=== PATIENT | male | born 1945 | race African-American/Black ===

== ENCOUNTER 2017-01-07 19:14 | Emergency (ER) | payer OTHER ==
[2017-01-07 19:49] VITALS: BMI 24.0
[2017-01-07 20:51] LABS: BASOPHIL 0.7 % (0-2.0); EOSINOPHIL 0.5 % (0-4.5); MCH 30.9 pg (25.7-33.7); MCHC 33.6 g/dl (32.0-35.9); MEAN CELL VOLUME 92.2 fl (80-96); MEAN PLT VOLUME 7.5 fl (7.5-11.1); NEUTROPHILS 76.7 % (42.8-82.8); PLATELET COUNT 308 K/MM3 (134-434); RDW 13.7 % (11.9-15.9); WHITE BLOOD COUNT 17.1 K/mm3 (4.0-10.0)
[2017-01-07 21:15] LABS: ALBUMIN 2.9 g/dl (3.4-5.0); AMYLASE 47 U/L (25-115); ANION GAP 14 (8-16); BILIRUBIN,TOTAL 0.4 mg/dL (0.2-1.0); CALCIUM 8.6 mg/dL (8.5-10.1); CO2 26 mmol/L (21-32); CREATININE 0.8 mg/dL (0.7-1.3); GLUCOSE,RANDOM 99 mg/dL (74-106); SGOT/AST 29 U/L (15-37); SGPT/ALT 44 U/L (12-78); TOT PROT 6.9 g/dl (6.4-8.2)
[2017-01-07 21:18] LABS: ALK PHOS 88 U/L (45-117); TROPONIN I < 0.02 ng/ml (0.00-0.05)
--- NOTE | 2017-01-07 21:18 | PDOC ---
History of Present Illness - General Chief Complaint: Cold Symptoms Stated Complaint: COUGH/ABD PAIN Time Seen by Provider: 01/07/17 20:04 History Source: Patient Exam Limitations: No Limitations - History of Present Illness Initial Comments: 01/07/17 21:15 71yo Male patient presents to ED c/o cough, cold, sneezing, chest pains, abd pain x 3 weeks. He denies fever, n/v/d, back pain, diff breathing. Patient reports OTC medication use for symptoms management. He denies PmHx, or Medication use. + Smoker, + ETOH (5 cans beer per day), - Drug use. Patient denies any other complaints at this time. Timing/Duration: reports: getting worse Severity: reports: mild Possible Cause: No: no prior episodes, other, allergen exposure, chronic episodes, frequent episodes, illness exposure, irritant gases exposure, occasional episodes, smoke exposure, unknown cause Modifying Factors: worse with: activity, albuterol inhaler, albuterol nebulizer , antibiotics, coughing, lying down, oxygen, rest, other Associated Symptoms: denies: denies symptoms, chest pain/soreness, cough, dizziness, earache, facial pain, fever/chills, headache, lightheadedness, muscle aches, nasal congestion, nasal drainage, shortness of breath, sinus infection, sore throat, wheezing, other Aspirin Received prior to arrival: No: no aspirin today, unknown, 81 mg x 1, 81 mg x 2, 81 mg x 3, 81 mg x 4, 325 mg x 1, provided at home, provided by EMS, provided by ED ASA Contraindications(Core Measure): No: Allergy, Other, Active Blding w/i 24 hrs., Plavix, Receiving Warfarin Beta Yash Contraindications(Core Measure): Yes: Not Prescribed Beta Yash Taken at Home(Core Measure): No Beta Yash Not Indicated at this Time(Core Measure): No Past History - Travel Traveled outside of the country in the last 30 days: No Close contact w/someone who was outside of country & ill: No - Past Medical History Allergies/Adverse Reactions: Allergies Allergy/AdvReac Type Severity Reaction Status Date / Time No Known Allergies Allergy Verified 01/07/17 19:46 Home Medications: Ambulatory Orders Albuterol Sulfate Inhaler - [Ventolin HFA Inhaler -] 1 - 2 inh PO Q4H PRN #1 inhaler 01/07/17 Amoxicillin/Potassium Clav [Augmentin 875-125 Tablet] 1 each PO BID #20 tablet 01/07/17 Prednisone [Deltasone -] 40 mg PO DAILY #10 tablet 01/07/17 - Psycho/Social/Smoking Cessation Hx Suicidal Ideation: No Smoking History: Current every day smoker Number of Cigarettes Smoked Daily: 20 Information on smoking cessation initiated: No Hx Alcohol Use: No Drug/Substance Use Hx: No Respiratory Specific PMHX - Complaint Specific PMHX Angina: No Bronchitis: No Pneumonia: No Pulmonary Embolus: No TB (Tuberculosis): No Review of Systems - Review of Systems Able to Perform ROS?: Yes Is the patient limited Lao proficient: No Constitutional: No: Chills, Fever Respiratory: Yes: Cough. No: Shortness of Breath, Stridor, Wheezing Cardiac (ROS): Yes: Chest Pain. No: Edema, Lightheadedness, Palpitations, Syncope, Chest Tightness ABD/GI: Yes: Other (Abdominal Pain). No: Diarrhea, Nausea, Poor Appetite, Poor Fluid Intake, Rectal Bleeding, Vomiting Musculoskeletal: No: Back Pain, Joint Pain, Muscle Weakness Integumentary: No: Bruising, Erythema, Rash Neurological: No: Headache, Numbness, Paresthesia, Seizure, Weakness All Other Systems: Reviewed and Negative *Physical Exam - Vital Signs Last Vital Signs Temp Pulse Resp BP Pulse Ox 99.7 F H 88 16 154/87 94 L 01/07/17 19:46 01/07/17 19:46 01/07/17 19:46 01/07/17 19:46 01/07/17 19:46 - Physical Exam General Appearance: Yes: Appropriately Dressed. No: Apparent Distress, Mild Distress, Moderate Distress, Severe Distress HEENT: positive: EOMI, ILSA, Normal ENT Inspection, Normal Voice, Symmetrical, TMs Normal, Pharynx Normal. negative: Tonsillar Exudate, Tonsillar Erythema, Rhinorrhea, Sinus Tenderness, TM Bulging, TM Dull, TM Erythema Neck: positive: Trachea midline, Supple. negative: Stridor, Lymphadenopathy (R) , Lymphadenopathy (L) Respiratory/Chest: positive: Lungs Clear, Normal Breath Sounds. negative: Respiratory Distress, Accessory Muscle Use, Labored Respiration, Rapid RR, Rhonchi, Stridor, Wheezing Cardiovascular: positive: Regular Rhythm, Regular Rate. negative: Edema, JVD, Murmur Gastrointestinal/Abdominal: positive: Normal Bowel Sounds, Soft, Distended. negative: Guarding, Rebound, Tenderness Musculoskeletal: positive: Normal Inspection. negative: CVA Tenderness Extremity: positive: Normal Capillary Refill, Normal Inspection, Normal Range of Motion. negative: Pedal Edema, Swelling Integumentary: positive: Normal Color, Dry, Warm Neurologic: positive: oracle bpm developer II-XII NML intact, Fully Oriented, Alert, Normal Mood/ Affect, Normal Response, Motor Strength 5/5 Heart Score/ECG Review - History History: Slightly suspicious - Electrocardiogram EKG: Normal - Age Age: >/= 65 - Risk Factors Risk Factors Heart Score: Yes Smoking History Based on the list above the patient has:: 1-2 risk factors - Troponin Troponin: </= normal limit - Score Heart Score - Total: 3 - ECG Impressions Normal ECG: Yes Non-specific ST Elevation: No Ischemic Changes: No Bradycardia: No Torsades kurt Pointes: No WPW: No Comment:: 01/07/17 22:43 Sinus w/ PVC 90bpm No ST elevation. ED Treatment Course - LABORATORY CBC & Chemistry Diagram: 01/07/17 20:40 01/07/17 20:40 - ADDITIONAL ORDERS Additional order review: 01/07/17 20:40 RBC 4.76 MCV 92.2 MCHC 33.6 RDW 13.7 MPV 7.5 Neutrophils % 76.7 Lymphocytes % 14.7 Monocytes % 7.4 Eosinophils % 0.5 Basophils % 0.7 - RADIOLOGY Radiology Studies Ordered: Category Date Time Status CHEST PA & LAT [RAD] Stat Radiology 01/07/17 20:21 Ordered Progress Note - Progress Note Progress Note: ON RE-EVALUATION, PATIENT UP AMBULATING IN [place]. PATIENT REPORTS FEELING BETTER AND WOULD LIKE TO BE D/C'D TO HOME. PLAN: ESTABLISH CARE WITH PCP ABX, STEROIDS, INHALER. *DC/Admit/Observation/Transfer Diagnosis at time of Disposition: Viral syndrome - Discharge Dispostion Disposition: HOME Condition at time of disposition: Improved Admit: No - Prescriptions Prescriptions: Amoxicillin/Potassium Clav [Augmentin 875-125 Tablet] 1 each PO BID #20 tablet Prednisone [Deltasone -] 40 mg PO DAILY #10 tablet Albuterol Sulfate Inhaler - [Ventolin HFA Inhaler -] 1 - 2 inh PO Q4H PRN #1 inhaler PRN Reason: Trouble Breathing - Referrals Referrals: Sedrick Lopez MD [Staff Physician] - - Patient Instructions Printed Discharge Instructions: DI for Viral Upper Respiratory Infection -- Adult, DI for Viral Syndrome Additional Instructions: FOLLOW UP WITH DR. LOPEZ TO ESTABLISH CARE. CALL TO SCHEDULE APPOINTMENT. TAKE MEDICATIONS PRESCRIBED. RETURN IF SYMPTOMS WORSEN, OR ANY CONCERNS FOR FURTHER EVALUATION. YOU MUST FOLLOW UP WITH DR. LOPEZ WITHOUT FAIL. IT IS IMPORTANT THAT YOU START SEEING A PHYSICIAN. NO WORK X 3 DAYS WITH REST. DRINK LOTS OF WATER. MOTRIN OR TYLENOL FOR PAIN/ FEVER. Print Language: UKRAINIAN - Post Discharge Activity Work/School Note: Back to Work
[2017-01-07] MEDS ORDERED: ALBUTEROL SO4 2.5/IPRATROPIUM 0.5 INH SOL 3 ML VIAL.NEB. NEB ONE ×4 (21:23→23:48)
[2017-01-07] MEDS ORDERED: AMOX TR/POT CLAV 875MG/125MG TABLETS (FP) PO ONE (22:39)
[2017-01-07] MEDS ORDERED: ACETAMINOPHEN 325 MG TABLET (FP) PO ONE (22:44)
[2017-01-07] MEDS ORDERED: AMOX TR/POT CLAV 875MG/125MG TABLETS (FP) ONE (22:53)
[2017-01-07] MEDS ORDERED: ACETAMINOPHEN 325 MG TABLET (FP) ONE (22:53)
[2017-01-07 23:17] LABS: URINE APPEARANCE CLEAR; URINE BILIRUBIN NEGATIVE (NEGATIVE); URINE COLOR YELLOW; URINE GLUCOSE (UA) NEGATIVE (NEGATIVE); URINE KETONE NEGATIVE (NEGATIVE); URINE LEUK ESTERASE NEGATIVE (NEGATIVE); URINE NITRITE NEGATIVE (NEGATIVE); URINE UROBILINOGEN 4.0 E.U/dl E.U./dl (0.2-1.0)
[2017-01-07 23:20] LABS: URINE BLOOD 1+ (NEGATIVE); URINE PROTEIN 1+ (NEGATIVE)
[2017-01-07 23:22] LABS: URINE BACTERIA RARE /hpf (NONE SEEN); URINE HYALINE CAST 1 /lpf; URINE MUCUS RARE; URINE RBC 11 /hpf (0-3); URINE WBC 3 /hpf (3-5)
[2017-01-08 00:28] VITALS: BP 145/79; PULSE 75; TEMP 99.4
--- NOTE | 2017-01-08 17:46 | EKG ---
Test Reason : Blood Pressure : / mmHG Vent. Rate : 092 BPM Atrial Rate : 092 BPM P-R Int : 154 ms QRS Dur : 068 ms QT Int : 370 ms P-R-T Axes : 050 -47 003 degrees QTc Int : 457 ms SINUS RHYTHM WITH FREQUENT PREMATURE VENTRICULAR COMPLEXES LEFT AXIS DEVIATION ANTEROSEPTAL INFARCT , AGE UNDETERMINED ABNORMAL ECG NO PREVIOUS ECGS AVAILABLE Confirmed by ISRAEL GERMAIN MD ([id number]) on 01/08/2017 5:46:09 PM Referred By: Confirmed By:ISRAEL GERMAIN MD
== END 2017-01-08 00:28 | disposition home or self-care (01) ==
LOC: JER 19:14
PROC: 3E0F7GC Introduction of Other Therapeutic Substance into Respiratory Tract, Via Natural or Artificial Opening (ICD-10-PCS; principal; 2017-01-07)
PROC: 3E0F7GC Introduction of Other Therapeutic Substance into Respiratory Tract, Via Natural or Artificial Opening (ICD-10-PCS; 2017-01-07)
DX: J06.9 Acute upper respiratory infection, unspecified (principal); B97.89 Other viral agents as the cause of diseases classified elsewhere; F17.210 Nicotine dependence, cigarettes, uncomplicated
CPT/HCPCS: 36415; 71020-TC; 80053; 81003; 81015; 82150; 82550; 83690; 84484; 85025; 93005; 93010; 94640; 99283-25

== ENCOUNTER 2017-07-16 16:10 | Inpatient (IN) | payer OTHER ==
[2017-07-16 16:21] VITALS: BMI 24.0
--- NOTE | 2017-07-16 16:56 | PDOC ---
History of Present Illness - General History Source: Patient Exam Limitations: No Limitations <Dana Ridley - Last Filed: 07/16/17 22:15> - History of Present Illness Beta Yash Contraindications (Core Measure): Yes: Not Prescribed <Antwon Daniel - Last Filed: 07/17/17 00:27> - General Chief Complaint: Syncope/Near Syncope Stated Complaint: FALL/ INJURY Time Seen by Provider: 07/16/17 16:56 - History of Present Illness Initial Comments: 07/16/17 17:44 Patient is a is a 72 year old male with no past medical history who presents to the ED s/p syncope today at 13:30. Patient states that he at [facility] and was walking to the bathroom as he felt lightheaded and fell flat onto his face. Patient reports LOC. He states that he cut his lip during the fall. He also reports bilateral leg weakness. He reports vomiting yesterday, but denies any today. He also reports hiccups since yesterday that have not resolved since. He denies any new abdominal distension. He denies any fever or chill. He denies any headache or blurry vision. He denies any cp or SOB. His Tetanus is not up to date. ALL: NKA SH : smoker - 1 pack a day, alcohol use - 6 pack every 2 days. PCP - Dr. Conroy (Dana Ridley) Past History <Dana Ridley - Last Filed: 07/16/17 22:15> - Past Medical History Other medical history: none - Psycho/Social/Smoking Cessation Hx Anxiety: No Suicidal Ideation: No Smoking History: Current every day smoker Have you smoked in the past 12 months: Yes Number of Cigarettes Smoked Daily: 20 Information on smoking cessation initiated: Yes 'Breaking Loose' booklet given: 07/16/17 Hx Alcohol Use: No Drug/Substance Use Hx: No Substance Use Type: None <Antwon Daniel - Last Filed: 07/17/17 00:27> - Past Medical History Allergies/Adverse Reactions: Allergies Allergy/AdvReac Type Severity Reaction Status Date / Time No Known Allergies Allergy Verified 07/16/17 16:15 Home Medications: Ambulatory Orders NK [No Known Home Medication] 07/16/17 Cardiac Specific PMH - Complaint Specific PMHX Angina: No Pulmonary Embolus: No <Antwon Daniel - Last Filed: 07/17/17 00:27> Review of Systems - Review of Systems Able to Perform ROS?: Yes <Dana Ridley - Last Filed: 07/16/17 22:15> <FredyAntwon - Last Filed: 07/17/17 00:27> - Review of Systems Comments:: 07/16/17 17:44 CONSTITUTIONAL: No fever, no chills, no fatigue EYES: No visual changes ENT: +lip pain. No ear pain, no sore throat CARDIOVASCULAR: No chest pain, no palpitations RESPIRATORY: No cough, no SOB GI: +hiccups. No abdominal pain, no nausea, no vomiting, no constipation, no diarrhea GENITOURINARY: No dysuria, no frequency, no hematuria MUSKULOSKELETAL: No backpain, no joint pain, no myalgias SKIN: No rash NEURO: +syncope No headache (Dana Ridley) *Physical Exam <Dana Ridley - Last Filed: 07/16/17 22:15> <Antwon Daniel - Last Filed: 07/17/17 00:27> - Vital Signs Last Vital Signs Temp Pulse Resp BP Pulse Ox 98.8 F 94 H 22 178/113 98 07/16/17 22:35 07/16/17 22:35 07/16/17 22:35 07/16/17 22:35 07/16/17 22:35 - Physical Exam Comments: 07/16/17 22:32 patient seen and evaluated by me immediately upon arrival. This physical exam is being recorded post admission. EXAMINATION CONSTITUTIONAL: Awake and alert; well-nourished; in no distress; HEAD: Normocephalic; atraumatic EYES: PERRL; EOM intact; conj-injected; + b/l purulent discharge ENMT: + Superficial abrasions to the bridge of the nose, to the nose and upper and lower lips, with tenderness to the nasal bridge, upper and lower lip; there is a 1 cm laceration to the mucosal surface of the lower lip; there is fracture avulsion of the tooth #8, tooth #9 is loose, (there is overall poor dentition with multiple cavities and missing teeth); there is no mandibular tenderness; there is small amount of cardiac-related blood within the oropharynx; NECK: Supple; non-tender; no cervical lymphadenopathy; no meningismus; CARD: Tachycardic; Normal S1, S2; 2/6 systolic murmurs, no rubs, or gallops RESP: Normal chest excursion with respiration; breath sounds clear and equal bilaterally; no wheezes, rhonchi, or rales ABD: Soft, distended; non-tender; no palpable organomegaly, no palpable hernias EXT: Normal ROM in all four extremities; non-tender to palpation; distal pulses intact SKIN: Warm, dry, no rash NEURO: Cranial nerves II through XII are grossly intact; motor is 5 of 54; there is no pronation drift; gait is deferred at this time. (Antwon Daniel) ED Treatment Course - LABORATORY CBC & Chemistry Diagram: 07/16/17 17:38 07/16/17 17:38 <Dana Ridley - Last Filed: 07/16/17 22:15> - LABORATORY CBC & Chemistry Diagram: 07/16/17 17:38 07/16/17 17:38 <Antwon Daniel - Last Filed: 07/17/17 00:27> - ADDITIONAL ORDERS Additional order review: Laboratory Results 07/16/17 07/16/17 07/16/17 20:43 18:13 17:38 INR PTT (Actin FS) VBG pH 7.43 H POC VBG pCO2 37.3 L POC VBG pO2 34.9 Mixed VBG HCO3 24.4 Sodium Potassium Chloride Carbon Dioxide Anion Gap BUN Creatinine Creat Clearance w eGFR Random Glucose Lactic Acid Calcium Total Bilirubin AST ALT Alkaline Phosphatase Creatine Kinase Creatine Kinase Index CK-MB (CK-2) Troponin I Total Protein Albumin Urine Color Ltyellow Urine Appearance Clear Urine pH 6.0 Ur Specific [place] 1.010 Urine Protein Negative Urine Glucose (UA) Negative Urine Ketones Negative Urine Blood 2+ H Urine Nitrite Negative Urine Bilirubin Negative Urine Urobilinogen Negative Ur Leukocyte Esterase Negative Urine RBC 3 Urine WBC 1 Ur Epithelial Cells Rare Urine Mucus Rare Blood Type B POSITIVE Antibody Screen Negative 07/16/17 07/16/17 07/16/17 17:38 17:38 17:38 INR 1.17 H PTT (Actin FS) 32.6 VBG pH POC VBG pCO2 POC VBG pO2 Mixed VBG HCO3 Sodium 135 L Potassium 3.9 Chloride 97 L Carbon Dioxide 26 Anion Gap 12 BUN 8 Creatinine 1.0 D Creat Clearance w eGFR > 60 Random Glucose 102 Lactic Acid 1.6 Calcium 9.3 Total Bilirubin 1.1 H D AST 55 H D ALT 35 D Alkaline Phosphatase 76 Creatine Kinase 2840 H Creatine Kinase Index 0.1 CK-MB (CK-2) 3.881 H Troponin I 0.13 H D Total Protein 8.0 Albumin 4.2 D Urine Color Urine Appearance Urine pH Ur Specific [place] Urine Protein Urine Glucose (UA) Urine Ketones Urine Blood Urine Nitrite Urine Bilirubin Urine Urobilinogen Ur Leukocyte Esterase Urine RBC Urine WBC Ur Epithelial Cells Urine Mucus Blood Type Antibody Screen 07/16/17 17:38 Group A Strep Rapid Antigen - Preliminary Throat 07/16/17 17:38 RBC 5.47 MCV 93.7 MCHC 33.8 RDW 13.7 MPV 8.3 D Neutrophils % Y Lymphocytes % Y - RADIOLOGY Radiology Studies Ordered: Category Date Time Status CHEST CTA [CT] Stat CT Scan 07/16/17 19:[address] W/O CONTRAST [CT] Stat CT Scan 07/16/17 18:[address] WITHOUT CONTRAST [CT] Stat CT Scan 07/16/17 18:50 Completed CHEST X-RAY PORTABLE* [RAD] Stat Radiology 07/16/17 17:20 Taken - Medications Given in the ED: ED Medications Discontinued Medications Generic Name Dose Route Start Last Admin Trade Name Freq PRN Reason Stop Dose Admin Acetaminophen 650 mg 07/16/17 17:50 07/16/17 17:50 Tylenol - PO 07/16/17 17:51 650 mg NOW ONE Administration Acetaminophen 650 mg 07/16/17 18:06 07/16/17 20:32 Tylenol - PO 07/16/17 18:07 Not Given ONCE ONE Aspirin 324 mg 07/16/17 20:24 07/16/17 20:40 Asa - PO 07/16/17 20:25 324 mg ONCE ONE Administration Diphtheria/Tetanus/Acell Pertussis 0.5 ml 07/16/17 17:23 07/16/17 18:02 Boostrix - IM 07/16/17 17:24 0.5 ml .ONCE ONE Administration Sodium Chloride 500 mls @ 500 mls/hr 07/16/17 19:14 07/16/17 20:40 Normal Saline - IV 07/16/17 20:13 500 mls/hr ASDIR STA Administration Azithromycin 500 mg/ Dextrose 250 mls @ 250 mls/hr 07/16/17 20:56 07/16/17 21: 36 IVPB 07/16/17 21:55 250 mls/hr ONCE ONE Administration Ceftriaxone Sodium 1 gm/ 50 mls @ 100 mls/hr 07/16/17 20:56 07/16/17 21:18 Dextrose IVPB 07/16/17 21:25 100 mls/hr ONCE ONE Administration Sodium Chloride 500 ml 07/16/17 17:20 07/16/17 17:51 Normal Saline - IV 07/16/17 17:21 500 ml ONCE ONE Administration Medical Decision Making <Dana Ridley - Last Filed: 07/16/17 22:15> <Antwon Daniel - Last Filed: 07/17/17 00:27> - Medical Decision Making 07/16/17 21:31 A call was placed to Dr. Conroy at his service. Awaiting on a call back from Dr. Griffith covering physician. 07/16/17 21:45 A second call was placed to Dr. Griffith at her service. Awaiting national sales manager back. 07/16/17 22:15 The case was discussed with Dr. Griffith. A call was placed to Dr. Figueroa at his service. Awaiting a call back. (Dana Ridley) 07/16/17 22:38 Patient 72-year-old male who presents to the ER after an unwitnessed syncopal episode with facial injuries, fever and intermittent singultus. EKG shows no evidence of acute ischemia. Chest x-ray reveals no evidence of infiltrate or effusion. CBC is reveals significant leukocytosis of 23,000. CMP reveals elevated CPK and minimally elevated troponin consistent with non-ST elevation myocardial infarction. Urinalysis reveals no evidence of pyuria. CT of head shows no evidence of acute intracranial pathology. CT face reveals a nasal bone and nasal alar fractures. CT of chest shows no evidence of acute PE, right posterior infiltrate is noted. I suspect a syncopal episode brought on by acute pneumonia. Blood and urine cultures been obtained. We'll administer ceftriaxone and Zithromax. Will consult cardiology. Will admit to the telemetry further evaluation treatment. Dr. Espinoza informed and agrees with the plan of care. 07/16/17 23:23 conj are injected, purulent discharge noted. gent opthalmic administered. 07/17/17 00:27 Patient noted to be hypertensive. We'll administer amlodipine 10 mg by mouth. ( Antwon Daniel) *DC/Admit/Observation/Transfer <Dana Ridley - Last Filed: 07/16/17 22:15> - Discharge Dispostion Admit: Yes <Antwon Daniel - Last Filed: 07/17/17 00:27> Diagnosis at time of Disposition: Pneumonia Qualifiers: Pneumonia type: due to unspecified organism Laterality: right Lung location: lower lobe of lung Qualified Code(s): J18.1 - Lobar pneumonia, unspecified organism Syncope Qualifiers: Syncope type: unspecified Qualified Code(s): R55 - Syncope and collapse Myocardial infarction Qualifiers: Myocardial infarction ST status: non-ST elevation myocardial infarction Qualified Code(s): I21.4 - Non-ST elevation (NSTEMI) myocardial infarction Conjunctivitis Qualifiers: Conjunctivitis type: acute Acute conjunctivitis type: unspecified Laterality: bilateral Qualified Code(s): H10.33 - Unspecified acute conjunctivitis, bilateral - Discharge Dispostion Condition at time of disposition: Fair Decision to Admit order Date/Time: Decision to Admit Order Category Date Time Status Decision to Admit to Hospital Routine Admission 07/16/17 22:31 Active - Referrals - Attestations Scribe Attestion: 07/16/17 17:45 Documentation prepared by DEZ Betancourt, acting as emergency medical tech for Antwon Daniel MD. (Dana Ridley)
[2017-07-16] MEDS ORDERED: SODIUM CHLORIDE 0.9% 1000 ML INFUS.BAG IV ONE (17:20)
[2017-07-16] MEDS ORDERED: DIPHTH,PERTUSS(ACELL),TET 0.5 ML DISP.SYRIN IM ONE (17:23)
[2017-07-16] MEDS ORDERED: LIDOCAINE HCL 2% (20ML MULTI-DOSE VIAL) NR ONE (17:30)
[2017-07-16] MEDS ORDERED: ACETAMINOPHEN 325 MG TABLET (FP) ONE (17:32)
[2017-07-16] MEDS ORDERED: ACETAMINOPHEN 325 MG TABLET (FP) PO ONE ×2 (17:50→18:06)
[2017-07-16 18:02] LABS: MCH 31.7 pg (25.7-33.7); MCHC 33.8 g/dl (32.0-35.9); MEAN CELL VOLUME 93.7 fl (80-96); MEAN PLT VOLUME 8.3 fl (7.5-11.1); PLATELET COUNT 242 K/MM3 (134-434); RDW 13.7 % (11.9-15.9); WHITE BLOOD COUNT 23.3 K/mm3 (4.0-10.0)
[2017-07-16 18:28] LABS: ALBUMIN 4.2 g/dl (3.4-5.0); ANION GAP 12 (8-16); CALCIUM 9.3 mg/dL (8.5-10.1); CO2 26 mmol/L (21-32); GLUCOSE,RANDOM 102 mg/dL (74-106)
[2017-07-16 18:31] LABS: VENOUS BLOOD GAS HCO3 24.4 meq/L (19-25); VENOUS PH 7.43 (7.32-7.42)
[2017-07-16 18:44] LABS: ALK PHOS 76 U/L (45-117); BILIRUBIN,TOTAL 1.1 mg/dL (0.2-1.0); SGOT/AST 55 U/L (15-37); SGPT/ALT 35 U/L (12-78); TROPONIN I 0.13 ng/ml (0.00-0.05)
[2017-07-16 18:46] LABS: INR 1.17 (0.82-1.09); PROTHROMBIN TIME (PATIENT) 12.9 SEC (9.98-11.88)
[2017-07-16 18:49] LABS: ACTIVATED PTT 32.6 SECONDS (26.9-34.4)
[2017-07-16 19:00] LABS: CPK 2840 IU/L (39-308)
[2017-07-16] MEDS ORDERED: SODIUM CHLORIDE 500 ML IV STA (19:14)
[2017-07-16] MEDS ORDERED: ASPIRIN 81 MG CHEWABLE TABLETS PO ONE (20:24)
[2017-07-16] MEDS ORDERED: ASPIRIN 81 MG CHEWABLE TABLETS ONE (20:33)
[2017-07-16] MEDS ORDERED: AZITHROMYCIN IVPB 500 MG in DEXTROSE 5%-WATER - 250 ML IVPB ONE (20:56)
[2017-07-16] MEDS ORDERED: CEFTRIAXONE 1 GM in DEXTROSE 5%-WATER - 50 ML IVPB ONE (20:56)
[2017-07-16 20:57] LABS: URINE APPEARANCE CLEAR; URINE BILIRUBIN NEGATIVE (NEGATIVE); URINE BLOOD 2+ (NEGATIVE); URINE COLOR LTYELLOW; URINE GLUCOSE (UA) NEGATIVE (NEGATIVE); URINE KETONE NEGATIVE (NEGATIVE); URINE LEUK ESTERASE NEGATIVE (NEGATIVE); URINE NITRITE NEGATIVE (NEGATIVE); URINE PROTEIN NEGATIVE (NEGATIVE); URINE UROBILINOGEN NEGATIVE mg/dL (0.2-1.0)
[2017-07-16] MEDS ORDERED: AZITHROMYCIN IVPB 250 ML IVPB ONE (21:10)
[2017-07-16] MEDS ORDERED: CEFTRIAXONE 50 ML ONE (21:10)
[2017-07-16 22:08] LABS: BASOPHIL (MANUAL) 0 % (0-2.0)
[2017-07-16] MEDS ORDERED: ALBUTEROL SO4 2.5/IPRATROPIUM 0.5 INH SOL 3 ML VIAL.NEB. NEB PRN (22:40)
[2017-07-16] MEDS ORDERED: ACETAMINOPHEN 325 MG TABLET (FP) PO PRN (22:42)
[2017-07-16 23:02] LABS: URINE MUCUS RARE; URINE RBC 3 /hpf (0-3); URINE WBC 1 /hpf (3-5)
[2017-07-16] MEDS ORDERED: GENTAMICIN SULFATE 0.3% OPHTHALMIC (EYE DROPS) 5ML BOTTLE ONE (23:03)
[2017-07-17] MEDS ORDERED: amLODIPine BESYLATE 10 MG TABLET (FP) PO ONE (00:27)
[2017-07-17] MEDS ORDERED: amLODIPine BESYLATE 5 MG TABLET (FP) ONE (00:29)
[2017-07-17 03:50] LABS: TROPONIN I 0.19 ng/ml (0.00-0.05)
[2017-07-17 07:59] LABS: BASOPHIL 0.5 % (0-2.0); EOSINOPHIL 0.1 % (0-4.5); MCH 31.6 pg (25.7-33.7); MCHC 33.8 g/dl (32.0-35.9); MEAN CELL VOLUME 93.7 fl (80-96); MEAN PLT VOLUME 8.2 fl (7.5-11.1); NEUTROPHILS 86.3 % (42.8-82.8); PLATELET COUNT 213 K/MM3 (134-434); RDW 13.6 % (11.9-15.9); WHITE BLOOD COUNT 22.3 K/mm3 (4.0-10.0)
[2017-07-17 08:39] LABS: ANION GAP 10 (8-16); CALCIUM 8.5 mg/dL (8.5-10.1); CO2 25 mmol/L (21-32); CREATININE 0.8 mg/dL (0.7-1.3); GLUCOSE,RANDOM 84 mg/dL (74-106); SGOT/AST 98 U/L (15-37); SGPT/ALT 46 U/L (12-78)
[2017-07-17 08:41] LABS: ALK PHOS 67 U/L (45-117); BILIRUBIN,TOTAL 0.8 mg/dL (0.2-1.0); TOT PROT 6.2 g/dl (6.4-8.2)
--- NOTE | 2017-07-17 08:46 | CON.CARD ---
Consult Consult Specialty:: Cardiology Referred by:: Dr. Griffith Reason for Consultation:: Syncope, elevated troponin, nsvt - History of Present Illness Chief Complaint: Syncope, dizziness History of Present Illness: 72 year old man with no prior known pmh admitted with syncope, dizziness, PNA, elevated ck and troponin. Pt was seen and examined today in [facility]. 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 he states that yesterday around lunch time he was walking to the bathroom when he felt dizziness and lost consciousness falling to the ground and hitting his face. He does not know how long he was unconscious but it seems like a short time. this was unwitnessed, when he woke up he saw someone nearby and asked for help. he refused to go to the hospital nearby but instead was driven down to [place] and came to [facility]. He denies any chest pain, sob, or palpitations. no pnd, orthopnea, or LE edema. He does state he felt slight lightheadedness the day before and also abdominal discomfort on the day of the event. Admits to a mild cough but nonproductive. no fever or chills. no prior similar events. - History Source History Provided By: Patient, Medical Record Limitations to Obtaining History: No Limitations - Alcohol/Substance Use Hx Alcohol Use: Yes (beer 8 cans/week) - Smoking History Smoking history: Current every day smoker Have you smoked in the past 12 months: Yes Aproximately how many cigarettes per day: 20 - Social History ADL: Independent History of Recent Travel: No Home Medications - Allergies Allergies/Adverse Reactions: Allergies Allergy/AdvReac Type Severity Reaction Status Date / Time No Known Allergies Allergy Verified 07/16/17 16:15 - Home Medications Home Medications: Ambulatory Orders NK [No Known Home Medication] 07/16/17 Family Disease History - Family Disease History Family History: Denies Review of Systems - Review of Systems Constitutional: denies: No Symptoms, Chills, Diaphoresis, Fever, Lethargy, Loss of Appetite, Malaise, Night Sweats, Unintentional Wgt. Loss, Weakness, Other Eyes: denies: No Symptoms, Blind Spots, Blurred Vision, Double Vision, Eye Pain , Floaters, Photophobia, Recent Change in Vision, Other HENT: denies: No Symptoms, Difficult Swallowing, Ear Discharge, Ear Pain, Epistaxis, Gingival Bleeding, Hearing Loss, Mouth Swelling, Nasal Congestion, Ocular Prosthesis, Throat Pain, Toothache, Ringing in Ears, Other Neck: denies: No Symptoms, Decreased ROM, Lumps, Pain on Movement, Stiffness, Swollen Glands, Tenderness, Other Cardiovascular: denies: No Symptoms, Chest Pain, Edema, Palpitations, Shortness of Breath, Other Respiratory: reports: Cough. denies: No Symptoms, Exercise Intolerance, Hemoptysis, Orthopnea, PND, Snoring, SOB, SOB on Exertion, Wheezing, Other Gastrointestinal: reports: Abdominal Pain, Indigestion. denies: No Symptoms, Bloating, Constipation, Diarrhea, Dysphagia, Melena, Nausea, Rectal Bleeding, Vomiting, Vomiting Blood, Other Genitourinary: denies: No Symptoms, Burning, Discharge, Dysuria, Flank Pain, Frequency, Hematuria, Incontinence, Lesions, Menses, Pain, Testicular Mass, Testicular Pain, Testicular Swelling, Urgency, Vaginal Bleeding, Other Breasts: denies: No Symptoms Reported, See HPI, Breast Implants, Discharge from Nipple, Lumps, Pain, Skin Changes, Other Musculoskeletal: denies: No Symptoms, Back Pain, Crepitus, Decreased ROM, Extremity Pain, Joint Pain, Joint Swelling, Muscle Pain, Muscle Cramps, Muscle Weakness, Other Integumentary: denies: No Symptoms, Blister, Bruising, Change in Color, Eczema, Erythema, Incision, Lesions, Lump, Pallor, Pruritis, Rash, Wound, Other Neurological: reports: Dizziness, Syncope. denies: No Symptoms, Change in LOC, Change in Speech, Confusion, Headache, Incoordination, Numbness, Parasthesia, Pre-Existing Deficit, Seizure, Tremors, Unsteady Gait, Weakness, Other Endocrine: denies: No Symptoms, Excessive Sweating, Flushing, Increased Hunger, Increased Thirst, Intolerance to Cold, Intolerance to Heat, Unexplained Weight Gain, Unexplained Weight Loss, Other Hematology/Lymphatic: denies: No Symptoms, Easily Bruised, Excessive Bleeding, Swollen Glands, Other Psychiatric: denies: No Symptoms, Altered Sleep Pattern, Anxiety, Depression, Hallucinations, Panic, Paranoia, Suicidal, Other Vital Signs: Vital Signs Temperature 98.8 F 07/17/17 05:51 Pulse Rate 84 07/17/17 05:51 Respiratory Rate 18 07/17/17 05:51 Blood Pressure 147/82 07/17/17 05:51 O2 Sat by Pulse Oximetry (%) 96 07/17/17 01:05 Constitutional: Yes: Well Nourished, No Distress, Calm, Other (poor dentitian) Eyes: Yes: Conjunctiva Clear, EOM Intact, PERRL HENT: Yes: Other (facial trauma). No: Atraumatic, Normocephalic Neck: Yes: Supple, Trachea Midline Respiratory: Yes: Regular, CTA Bilaterally, Rhonchi. No: Rales, SOB, Wheezes Gastrointestinal: Yes: Normal Bowel Sounds, Soft. No: Distention, Tenderness Renal/: Yes: WNL Cardiovascular: Yes: Regular Rate and Rhythm. No: Bradycardia, Tachycardia, Pulse Irregular, Gallop, Rub, Varicosities JVD: No Carotid Bruit: No PMI: Non-Displaced Heart Sounds: Yes: S1, S2. No: Split S2, S3, S4, Clicks, Gallop, Rub, Bruit Murmur: No: Systolic Murmur, Diastolic Murmur Musculoskeletal: Yes: WNL Extremities: Yes: WNL Edema: No Peripheral Pulses WNL: Yes Peripheral Pulses: 2+ Left Doralis Pedis, 2+ Right Dorsalis Pedis Integumentary: Yes: WNL Neurological: Yes: Alert, Oriented, Cran Nerves II-XII Intact Psychiatric: Yes: Alert, Oriented - Other Data Labs, Other Data: CBC, BMP 07/17/17 06:00 INR, PTT INR 1.17 (0.82-1.09) H 07/16/17 17:38 Troponin, BNP 07/17/17 03:00 Troponin I 0.19 H D Troponin, BNP 07/17/17 03:00 Troponin I 0.19 H D ekg-sinus tachycardia 104bpm, poor R wave progression, left axis deviation, septal infarct Echo: Pending Imaging - Results Chest X-ray: Report Reviewed, Image Reviewed Cat Scan: Report Reviewed EKG: Report Reviewed, Image Reviewed Other: Report Reviewed, Image Reviewed (tele-nsr, 5 beats NSVT vs PSVT with aberrancy, frequent PVCs) Assessment/Plan 72 year old man with no prior known pmh admitted with syncope, dizziness, abdominal discomfort, PNA, elevated ck and troponin. Syncope-uncertain etiology -likely related to PNA however need to evaluate for cardiac source -5 beats of NSVT vs PSVT with aberrancy on telemetry with frequent PVCs -cont tele monitoring -carotid doppler showed no stenosis -CT head showed no acute event -f/up echo to evaluate for structural heart disease -check orthostatic BP -tx of PNA -consider Neuro evaluation if needed Elevated cardiac enzymes -troponin slightly above upper limit of normal but did not trend significantly up and is associated with an elevated CK level out of proportion to troponin thus unlikely at type I CT, trop trended back down to 0.13 on last check -start ASA 325mg x 1 then 81mg daily -start metoprolol 25mg po bid -start Lipitor -hold off on full AC as trop did not sig trend up -5 beats NSVT on tele with frequent pvcs -no reported chest pain or sob -f/up echo -would recc an ischemic evaluation prior to discharge likely with a nuclear stress test, will order nuclear stress test for tomorrow and re-evaluate in am if clinically ready for stress test Arrhythmia-frequent PVCs, 5 beats NSVT vs PSVT with aberrancy -start metoprolol as above -f/up echo -ischemic evaluation as above -cont tele monitoring for now
--- NOTE | 2017-07-17 09:09 | CONSULT ---
Consultation: REQUESTING PROVIDER: CONSULT REQUEST: We have been asked to medically evaluate this patient for ( specify). HISTORY OF PRESENT ILLNESS: Patient is a 72 y/o M with no significant past medical history arrived at the ED department s/p syncope that occurred while walking to the bathroom at [facility]. He experienced lightheadedness and 1 episode of vomiting before the fall, fell flat on his face and says he lost consciousness for about a minute. 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 He denies diarrhea, fever, urinary symptoms, sob, headache weight loss and recent travel. 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 consistently uses condoms REVIEW OF SYSTEMS: CONSTITUTIONAL: Absent: fever, chills, diaphoresis, generalized weakness, malaise, loss of appetite, weight change HEENT: Absent: rhinorrhea, nasal congestion, throat pain, throat swelling, difficulty swallowing, mouth swelling, ear pain, eye pain, visual changes CARDIOVASCULAR: Absent: chest pain, syncope, palpitations, irregular heart rate, lightheadedness , peripheral edema RESPIRATORY: Absent: cough, shortness of breath, dyspnea with exertion, orthopnea, wheezing, stridor, hemoptysis GASTROINTESTINAL: abdominal pain Absent: abdominal distension, nausea, vomiting, diarrhea, constipation, melena, hematochezia GENITOURINARY: Absent: dysuria, frequency, urgency, hesitancy, hematuria, flank pain, genital pain MUSCULOSKELETAL: Absent: myalgia, arthralgia, joint swelling, back pain, neck pain SKIN: Absent: rash, itching, pallor HEMATOLOGIC/IMMUNOLOGIC: Absent: easy bleeding, easy bruising, lymphadenopathy, frequent infections ENDOCRINE: Absent: unexplained weight gain, unexplained weight loss, heat intolerance, cold intolerance NEUROLOGIC: Absent: headache, focal weakness or paresthesias, dizziness, unsteady gait, seizure, mental status changes, bladder or bowel incontinence PSYCHIATRIC: Absent: anxiety, depression, suicidal or homicidal ideation, hallucinations. PHYSICAL EXAMINATION Vital Signs - 24 hr 07/17/17 07/17/17 07/17/17 00:20 01:02 01:05 Temperature 99.3 F 99.3 F Pulse Rate 92 H 90 Pulse Rate [ 87 Right Radial] Respiratory 18 20 20 Rate Blood Pressure 166/92 166/92 Blood Pressure 154/95 [Right Arm] O2 Sat by Pulse 96 Oximetry (%) 07/17/17 05:51 Temperature 98.8 F Pulse Rate 84 Pulse Rate [ Right Radial] Respiratory 18 Rate Blood Pressure 147/82 Blood Pressure [Right Arm] O2 Sat by Pulse Oximetry (%) GENERAL: Awake, alert, and fully oriented, in no acute distress. HEAD: Normal with no signs of trauma. EYES: Pupils equal, round and reactive to light, extraocular movements intact, sclera anicteric, conjunctiva clear. No lid lag. EARS, NOSE, THROAT: Ears normal, superficial abrasions to the nose and lips, laceration to mucosal surface of lower lips. Moist mucous membranes. NECK: Normal range of motion, supple without lymphadenopathy, JVD, or masses. LUNGS: Breath sounds equal, clear to auscultation bilaterally. No wheezes, and no crackles. No accessory muscle use. HEART: Regular rate and rhythm, normal S1 and S2 without murmur, rub or gallop. ABDOMEN: nontender, distended, normoactive bowel sounds, no guarding, no rebound , no masses. No hepatomegaly or splenomegaly. MUSCULOSKELETAL: Normal range of motion at all joints. No bony deformities or tenderness. No CVA tenderness. UPPER EXTREMITIES: left hand tenderness, 2+ pulses, warm, well-perfused. No cyanosis. No clubbing. Cap refill <2 seconds. No peripheral edema. LOWER EXTREMITIES: 2+ pulses, warm, well-perfused. No calf tenderness. No peripheral edema. PSYCHIATRIC: Cooperative. Good eye contact. Appropriate mood and affect. SKIN: Warm, dry, normal turgor, no rashes or lesions noted. Laboratory Results - last 24 hr 07/17/17 07/17/17 07/17/17 03:00 06:00 06:00 WBC 22.3 H RBC 4.74 Hgb 15.0 D Hct 44.4 MCV 93.7 MCH 31.6 MCHC 33.8 RDW 13.6 Plt Count 213 MPV 8.2 Neutrophils % 86.3 H Lymphocytes % 7.7 L D Monocytes % 5.4 Eosinophils % 0.1 Basophils % 0.5 Sodium 140 Potassium 3.5 Chloride 105 Carbon Dioxide 25 Anion Gap 10 BUN 7 Creatinine 0.8 Creat Clearance w eGFR > 60 Random Glucose 84 Calcium 8.5 Total Bilirubin 0.8 D AST 98 H D ALT 46 D Alkaline Phosphatase 67 Creatine Kinase 5455 H Creatine Kinase Index 0.0 CK-MB (CK-2) 3.991 H Troponin I 0.19 H D Total Protein 6.2 L D Albumin 3.0 L D Active Medications Generic Name Dose Route Start Last Admin Trade Name Freq PRN Reason Stop Dose Admin Acetaminophen 650 mg 07/16/17 22:42 Tylenol - PO Q6H PRN FEVER Albuterol/Ipratropium 1 amp 07/16/17 22:40 Duoneb - NEB Q6H PRN Dyspnea Aspirin 325 mg 07/17/17 08:58 Asa - PO 07/17/17 08:59 ONCE ONE Aspirin 81 mg 07/18/17 10:00 Asa - PO DAILY YVES Atorvastatin Calcium 40 mg 07/17/17 22:00 Lipitor - PO HS YVES Azithromycin 250 mls @ 250 mls/hr 07/17/17 10:00 Zithromax 500mg Ivpb (Pre-Docked) IVPB DAILY YVES Ceftriaxone Sodium 50 mls @ 100 mls/hr 07/17/17 10:00 Rocephin 1gm Ivpb (Pre-Docked) IVPB DAILY YVES Metoprolol Tartrate 25 mg 07/17/17 10:00 Lopressor - PO BID YVES ASSESSMENT/PLAN: Patient is a 72 y/o M with no significant past medical history arrived at the ED department admitted for syncope and currently being treated for pneumonia. ASSESSMENT AND PLAN: 1) RLL Pneumonia (CAP) -continue rocephin 1g IV qd -zithromax 500mg IV qd - F/up Bcx, Ucx, throat culture, urine antigen for pneumonia negative, HIV screening (pt agreeable) 2) Syncope -cardiology on board believes syncope secondary to the pneumonia but is investigating other causes at this time. -carotid doppler is negative -Ct head negative for acute pathology - F/up echo 3)Transaminitis - Patient with abdominal distention, history of alcoholism - will investigate with abdominal U/S, HIV testing, and Hep C panel Dispo: We will continue to follow the patient. Thank you for this consultative opportunity. Visit type - Emergency Visit Emergency Visit: Yes ED Registration Date: 07/16/17 Care time: The patient presented to the Emergency Department on the above date and was hospitalized for further evaluation of their emergent condition. - New Patient This patient is new to me today: Yes Date on this admission: 07/18/17 - Critical Care Critical Care patient: No
[2017-07-17] MEDS ORDERED: ASPIRIN 325 MG TABLET PO ONE (09:45)
--- NOTE | 2017-07-17 09:49 | PN ---
Teaching Attending Note Name of Resident: Javier Brar ATTENDING PHYSICIAN STATEMENT I saw and evaluated the patient. I reviewed the resident's note and discussed the case with the resident. I agree with the resident's findings and plan as documented. SUBJECTIVE: OBJECTIVE: ASSESSMENT AND PLAN: syncope LLL pneumonia leukocytosis continue treatment of CAP f/u cultures HIV screen in am (pt agreeable) abd sonogram- abnl lfts, +etoh, check hep c rhabdomyolysis positive troponin continue rocephin/zithromax f/u cultures legionella urinary antigen sono abd hiv hep c Problem List - Problems (1) Syncope Code(s): R55 - SYNCOPE AND COLLAPSE Qualifiers: Syncope type: unspecified Qualified Code(s): R55 - Syncope and collapse (2) Pneumonia Code(s): J18.9 - PNEUMONIA, UNSPECIFIED ORGANISM Qualifiers: Pneumonia type: due to unspecified organism Laterality: right Lung location: lower lobe of lung Qualified Code(s): J18.1 - Lobar pneumonia, unspecified organism (3) Rhabdomyolysis Code(s): M62.82 - RHABDOMYOLYSIS (4) Abnormal LFTs Code(s): R79.89 - OTHER SPECIFIED ABNORMAL FINDINGS OF BLOOD CHEMISTRY (5) Troponin I above reference range Code(s): R74.8 - ABNORMAL LEVELS OF OTHER SERUM ENZYMES
[2017-07-17] MEDS: CEFTRIAXONE 50 ML IVPB SCH (10:15)
[2017-07-17] MEDS: AZITHROMYCIN IVPB 250 ML IVPB SCH (10:18)
[2017-07-17] MEDS: METOPROLOL TARTRATE 25 MG TABLET (FP) PO SCH ×2 (10:18→22:03)
[2017-07-17 11:00] LABS: TROPONIN I 0.13 ng/ml (0.00-0.05)
[2017-07-17] MEDS: SODIUM CHLORIDE 0.45% 1,000 ML IV SCH (11:00)
--- NOTE | 2017-07-17 12:50 | HP ---
Admitting History and Physical - Primary Care Physician PCP: Sedrick Conroy - Admission Chief Complaint: syncope History of Present Illness: ER HISTORY - History of Present Illness Initial Comments: 07/16/17 17:44 Patient is a is a 72 year old male with no past medical history who presents to the ED s/p syncope today at 13:30. Patient states that he at [facility] and was walking to the bathroom as he felt lightheaded and fell flat onto his face. Patient reports LOC. He states that he cut his lip during the fall. He also reports bilateral leg weakness. He reports vomiting yesterday, but denies any today. He also reports hiccups since yesterday that have not resolved since. He denies any new abdominal distension. He denies any fever or chill. He denies any headache or blurry vision. He denies any cp or SOB. His Tetanus is not up to date. ALL: NKA SH : smoker - 1 pack a day, alcohol use - 6 pack every 2 days. PCP - Dr. Conroy Pt seen by me in Telemetry Has lip pain no body aches or pain Pt is a small business consultant. He fainted after driving to [place] , just felt lightheaded and fell.Unknown how long he passed out as it was unwitnessed. Did not go to ER nearby and was brought here prior to that he has been having occasion coughing with moist sputum- chronic smoker No fever or SOB No Chest pain Fell on his face and lip was sutured in ER History Source: Patient Limitations to Obtaining History: No Limitations - Past Medical History Pulmonary: Yes: COPD - Smoking History Smoking history: Current every day smoker Have you smoked in the past 12 months: Yes Aproximately how many cigarettes per day: 20 - Alcohol/Substance Use Hx Alcohol Use: Yes (beer 8 cans/week) - Social History ADL: Independent History of Recent Travel: No Home Medications - Allergies Allergies/Adverse Reactions: Allergies Allergy/AdvReac Type Severity Reaction Status Date / Time No Known Allergies Allergy Verified 07/16/17 16:15 - Home Medications Home Medications: Ambulatory Orders NK [No Known Home Medication] 07/16/17 Review of Systems - Review of Systems Constitutional: reports: Weakness. denies: Chills, Fever, Loss of Appetite Cardiovascular: denies: Chest Pain, Palpitations, Shortness of Breath Respiratory: reports: Cough. denies: SOB, Wheezing Physical Examination Vital Signs: Vital Signs Temperature 98.8 F 07/17/17 05:51 Pulse Rate 84 07/17/17 05:51 Respiratory Rate 18 07/17/17 05:51 Blood Pressure 147/82 07/17/17 05:51 O2 Sat by Pulse Oximetry (%) 96 07/17/17 01:05 Constitutional: Yes: No Distress, Calm HENT: Yes: Other (lips swollen) Cardiovascular: Yes: Regular Rate and Rhythm Respiratory: Yes: Diminished, Rales (right lung) Gastrointestinal: Yes: Normal Bowel Sounds, Soft. No: Distention, Tenderness Edema: No Psychiatric: Yes: Alert, Oriented Labs: CBC, BMP 07/17/17 06:00 07/17/17 06:00 Imaging - Results Chest X-ray: Image Reviewed Cat Scan: Report Reviewed EKG: Image Reviewed Problem List - Problems (1) Pneumonia Code(s): J18.9 - PNEUMONIA, UNSPECIFIED ORGANISM Qualifiers: Pneumonia type: due to unspecified organism Laterality: right Lung location: lower lobe of lung Qualified Code(s): J18.1 - Lobar pneumonia, unspecified organism (2) Rhabdomyolysis Code(s): M62.82 - RHABDOMYOLYSIS Qualifiers: Rhabdomyolysis type: traumatic (3) Syncope Code(s): R55 - SYNCOPE AND COLLAPSE Qualifiers: Syncope type: unspecified Qualified Code(s): R55 - Syncope and collapse (4) Troponin I above reference range Code(s): R74.8 - ABNORMAL LEVELS OF OTHER SERUM ENZYMES Assessment/Plan PLAN Received antibiotics in ER cultures pending Urine antigens negative ID and Cardiology eval IV fluids trend cardiac enzymes and CPK check Echo Carotid doppler-- no stenosis may need to repeat CT chest in a few days CT chest -- Negative for PE, right lung infiltrate CT facial bones-- nasal fracture CT head- negative IV antibiotics Sputum cultures nebs as needed DVT prophylaxis-- Heparin sc Time spent assessment, plan, documentation and talking with consultants-- 40 min
[2017-07-17] MEDS: NICOTINE 14 MG/24 HOURS TOPICAL PATCH TD SCH (15:24)
--- NOTE | 2017-07-17 16:42 | EKG ---
Test Reason : Blood Pressure : / mmHG Vent. Rate : 104 BPM Atrial Rate : 104 BPM P-R Int : 166 ms QRS Dur : 086 ms QT Int : 346 ms P-R-T Axes : 057 -54 048 degrees QTc Int : 454 ms SINUS TACHYCARDIA POSSIBLE LEFT ATRIAL ENLARGEMENT LEFT AXIS DEVIATION SEPTAL INFARCT (CITED ON OR BEFORE 07-JAN-2017) ABNORMAL ECG WHEN COMPARED WITH ECG OF 07-JAN-2017 22:30, PREMATURE VENTRICULAR COMPLEXES ARE NO LONGER PRESENT NONSPECIFIC T WAVE ABNORMALITY NO LONGER EVIDENT IN LATERAL LEADS Confirmed by LUCY OLIVARES MD ([id number]) on 07/17/2017 4:41:53 PM Referred By: Confirmed By:LUCY OLIVARES MD
[2017-07-17] MEDS: ATORVASTATIN CA 40 MG TABLET (FP) PO SCH (22:04)
[2017-07-17] MEDS: HEPARIN NA (PORCINE) 5,000 UNITS/ML 1ML VIAL SQ SCH (22:04)
[2017-07-18 08:13] LABS: ALBUMIN 2.8 g/dl (3.4-5.0); ALK PHOS 66 U/L (45-117); ANION GAP 8 (8-16); BILIRUBIN,TOTAL 0.6 mg/dL (0.2-1.0); CALCIUM 8.3 mg/dL (8.5-10.1); CO2 25 mmol/L (21-32); CREATININE 0.7 mg/dL (0.7-1.3); GLUCOSE,RANDOM 83 mg/dL (74-106); SGOT/AST 154 U/L (15-37); SGPT/ALT 63 U/L (12-78); TOT PROT 5.9 g/dl (6.4-8.2)
--- NOTE | 2017-07-18 08:13 | PN ---
Physical Exam: SUBJECTIVE: Patient seen and examined. No overnight events and no new complaints. He still has pain in his left hand and wrist that has not improved. Patient says cough is much better than before. He denies chest and abdominal pain, urinary symptoms, fever, SOB and dizziness. OBJECTIVE: Vital Signs Period Temp Pulse Resp BP Sys/Elias Pulse Ox Last 24 Hr 98.0 F-99.2 F 68-77 18-18 137-145/72-82 96-97 GENERAL: The patient is awake, alert, and fully oriented, in no acute distress. HEAD: Normal with no signs of trauma. EYES: PERRL, extraocular movements intact, sclera anicteric, conjunctiva clear. No ptosis. ENT: superficial abrasions to the nose and lips. Laceration to the mucosal surface of lower lip. NECK: supple. LUNGS: Breath sounds equal, clear to auscultation bilaterally, no wheezes, no crackles, no accessory muscle use. HEART: Regular rate and rhythm, S1, S2 without murmur, rub or gallop. ABDOMEN: Soft, nontender, distended, normoactive bowel sounds, no guarding, no rebound, no hepatosplenomegaly, no masses. EXTREMITIES: pain and tenderness on left hand and wrist PSYCH: Normal mood, normal affect. SKIN: Warm, dry, normal turgor, no rashes Laboratory Results - last 24 hr 07/17/17 07/17/17 07/17/17 06:00 06:00 09:55 WBC 22.3 H RBC 4.74 Hgb 15.0 D Hct 44.4 MCV 93.7 MCH 31.6 MCHC 33.8 RDW 13.6 Plt Count 213 MPV 8.2 Neutrophils % 86.3 H Lymphocytes % 7.7 L D Monocytes % 5.4 Eosinophils % 0.1 Basophils % 0.5 Sodium 140 Potassium 3.5 Chloride 105 Carbon Dioxide 25 Anion Gap 10 BUN 7 Creatinine 0.8 Creat Clearance w eGFR > 60 Random Glucose 84 Calcium 8.5 Total Bilirubin 0.8 D AST 98 H D ALT 46 D Alkaline Phosphatase 67 Creatine Kinase 5047 H Creatine Kinase Index 0.0 CK-MB (CK-2) 2.359 Troponin I 0.13 H D Total Protein 6.2 L D Albumin 3.0 L D Active Medications Generic Name Dose Route Start Last Admin Trade Name Freq PRN Reason Stop Dose Admin Acetaminophen 650 mg 07/16/17 22:42 Tylenol - PO Q6H PRN FEVER Albuterol/Ipratropium 1 amp 07/16/17 22:40 Duoneb - NEB Q6H PRN Dyspnea Aspirin 81 mg 07/18/17 10:00 Asa - PO DAILY YVES Atorvastatin Calcium 40 mg 07/17/17 22:00 07/17/17 22:04 Lipitor - PO 40 mg HS YVES Administration Heparin Sodium (Porcine) 5,000 unit 07/17/17 22:00 07/17/17 22:04 Heparin - SQ 5,000 unit BID YVES Administration Azithromycin 250 mls @ 250 mls/hr 07/17/17 10:00 07/17/17 10:18 Zithromax 500mg Ivpb (Pre-Docked) IVPB 250 mls/hr DAILY YVES Administration Ceftriaxone Sodium 50 mls @ 100 mls/hr 07/17/17 10:00 07/17/17 10:15 Rocephin 1gm Ivpb (Pre-Docked) IVPB 100 mls/hr DAILY YVES Administration Sodium Chloride 1,000 mls @ 83 mls/hr 07/17/17 10:15 07/17/17 11:00 1/2 Normal Saline IV 83 mls/hr ASDIR YVES Administration Metoprolol Tartrate 25 mg 07/17/17 10:00 07/17/17 22:03 Lopressor - PO 25 mg BID YVES Administration Nicotine 14 mg 07/17/17 14:15 07/17/17 15:24 Nicoderm Patch - TD 14 mg DAILY YVES Administration Microbiology 07/16/17 23:45 Urine For Antigen Detection Legionella Antigen - Final 07/16/17 23:45 Urine For Antigen Detection Streptococcus pneumoniae Antigen (M - Final 07/16/17 17:38 Throat Throat Culture - Final 07/16/17 17:38 Throat NO BETA HEMOLYTIC STREPTOCOCCI ISOLATED 07/16/17 17:38 Throat Group A Strep Rapid Antigen - Preliminary ASSESSMENT/PLAN: Patient is a 72 y/o M with no significant past medical history arrived at the ED department admitted for syncope and currently being treated for pneumonia. ASSESSMENT AND PLAN: 1) RLL Pneumonia (CAP) -continue antibiotics: rocephin 1g IV qd zithromax 500mg IV qd 2) Syncope -cardiology on board believes syncope secondary to the pneumonia but is investigating other causes at this time. -carotid doppler is negative -Ct head negative for acute pathology 2) Left hand pain - ordered left hand/wrist xray 3)Transaminitis - Patient with abdominal distention, history of alcoholism - will investigate with abdominal Hep C panel - negative HIV test Visit type - Emergency Visit Emergency Visit: Yes ED Registration Date: 07/16/17 Care time: The patient presented to the Emergency Department on the above date and was hospitalized for further evaluation of their emergent condition. - New Patient This patient is new to me today: No - Critical Care Critical Care patient: No
[2017-07-18 08:21] LABS: BASOPHIL 0.5 % (0-2.0); EOSINOPHIL 0.9 % (0-4.5); MCH 32.1 pg (25.7-33.7); MCHC 33.7 g/dl (32.0-35.9); MEAN CELL VOLUME 95.2 fl (80-96); MEAN PLT VOLUME 8.6 fl (7.5-11.1); NEUTROPHILS 75.6 % (42.8-82.8); PLATELET COUNT 224 K/MM3 (134-434); RDW 13.9 % (11.9-15.9); WHITE BLOOD COUNT 16.2 K/mm3 (4.0-10.0)
--- NOTE | 2017-07-18 09:16 | PN ---
Progress Note, Physician History of Present Illness: seen and examined today in nad. pt states he is feeling better. ambulated with patient in hallway did feel unsteady. no overnight events. no new complaints. - Current Medication List Current Medications: Active Medications Acetaminophen (Tylenol -) 650 mg PO Q6H PRN PRN Reason: FEVER Albuterol/Ipratropium (Duoneb -) 1 amp NEB Q6H PRN PRN Reason: Dyspnea Aspirin (Asa -) 81 mg PO DAILY [facility] Atorvastatin Calcium (Lipitor -) 40 mg PO HS [facility] Last Admin: 07/17/17 22:04 Dose: 40 mg Heparin Sodium (Porcine) (Heparin -) 5,000 unit SQ BID [facility] Last Admin: 07/17/17 22:04 Dose: 5,000 unit Azithromycin (Zithromax 500mg Ivpb (Pre-Docked)) 250 mls @ 250 mls/hr IVPB DAILY [facility] Last Admin: 07/17/17 10:18 Dose: 250 mls/hr Ceftriaxone Sodium (Rocephin 1gm Ivpb (Pre-Docked)) 50 mls @ 100 mls/hr IVPB DAILY [facility] Last Admin: 07/17/17 10:15 Dose: 100 mls/hr Sodium Chloride (1/2 Normal Saline) 1,000 mls @ 83 mls/hr IV ASDIR [facility] Last Admin: 07/17/17 11:00 Dose: 83 mls/hr Dipyridamole 36.3 mg/ Dextrose 36.3 mls @ 544.5 mls/hr IVPB ONCE ONE Stop: 07/18/17 10:03 Metoprolol Tartrate (Lopressor -) 25 mg PO BID [facility] Last Admin: 07/17/17 22:03 Dose: 25 mg Nicotine (Nicoderm Patch -) 14 mg TD DAILY [facility] Last Admin: 07/17/17 15:24 Dose: 14 mg - Objective Vital Signs: Vital Signs Temperature 98.2 F 07/18/17 06:00 Pulse Rate 75 07/18/17 06:00 Respiratory Rate 18 07/18/17 06:00 Blood Pressure 144/78 07/18/17 06:00 O2 Sat by Pulse Oximetry (%) 96 07/17/17 21:00 Constitutional: Yes: No Distress, Calm Eyes: Yes: Conjunctiva Clear, EOM Intact, PERRL HENT: Yes: Other (facial ecchymosis and laceration). No: Atraumatic, Normocephalic Neck: Yes: Supple, Trachea Midline Cardiovascular: Yes: Regular Rate and Rhythm, S1, S2. No: Bradycardia, Tachycardia, Pulse Irregular, Bruit, JVD, Gallop, Murmur, Rub, S3, S4, Varicosities Respiratory: Yes: Regular, Rhonchi. No: CTA Bilaterally, Rales, SOB, Wheezes Gastrointestinal: Yes: Normal Bowel Sounds, Soft. No: Distention, Tenderness Extremities: Yes: WNL Edema: No Peripheral Pulses WNL: Yes Peripheral Pulses: Left Doralis Pedis: 2+, Right Dorsalis Pedis: 2+ Integumentary: Yes: Laceration Neurological: Yes: Alert, Oriented Psychiatric: Yes: Alert, Oriented Labs: CBC, BMP 07/18/17 05:35 07/18/17 05:35 INR, PTT INR 1.17 (0.82-1.09) H 07/16/17 17:38 - ....Imaging Chest X-ray: Report Reviewed, Image Reviewed EKG: Report Reviewed, Image Reviewed Other: Report Reviewed, Image Reviewed (tele-nsr, pvcs, brief nsvt) Assessment/Plan 72 year old man with no prior known pmh admitted with syncope, dizziness, abdominal discomfort, PNA, elevated ck and troponin. Syncope-uncertain etiology-likely related to PNA however evaluating for cardiac source -brief episodes of NSVT vs PSVT with aberrancy on telemetry with frequent PVCs -cont tele monitoring -carotid doppler showed no stenosis -CT head showed no acute event -echo showed normal LV/RV function, mod MR/TR/WI, no pericardial effusion. AV was not commented on. -will review echo images to ensure no -check orthostatic BP -tx of PNA Elevated cardiac enzymes -troponin slightly above upper limit of normal but did not trend significantly up and is associated with an elevated CK level out of proportion to troponin thus unlikely at type I MA, trop trended back down to 0.13 on last check -cont ASA 81mg daily -cont metoprolol will change to toprol xl 50mg daily -cont Lipitor -held off on full AC as trop did not sig trend up -brief NSVT on tele with frequent pvcs -no reported chest pain or sob -echo as above -f/up persantine nuclear stress test today to evaluate for ischemia Arrhythmia-frequent PVCs, 5 beats NSVT vs PSVT with aberrancy -echo as above -cont metoprolol, adjust to daily dosing as above -f/up echo -ischemic evaluation as above -cont tele monitoring for now
[2017-07-18] MEDS ORDERED: DIPYRIDAMOLE STRESS TEST IVPB ONE (10:00)
[2017-07-18] MEDS ORDERED: WATER IVPB ONE (10:00)
[2017-07-18] MEDS ORDERED: DEXTROSE 5% IVPB ONE (10:00)
[2017-07-18 10:14] LABS: HIV 1 & 2 AB NEGATIVE; HIV 1 AGp24 NEGATIVE
[2017-07-18] MEDS ORDERED: PT OWN MED DRAWER 7, Y5N ONE (10:18)
[2017-07-18] MEDS: AZITHROMYCIN IVPB 250 ML IVPB SCH (13:09)
[2017-07-18] MEDS: CEFTRIAXONE 50 ML IVPB SCH (13:10)
[2017-07-18] MEDS: ASPIRIN 81 MG CHEWABLE TABLETS PO SCH (13:10)
[2017-07-18] MEDS: NICOTINE 14 MG/24 HOURS TOPICAL PATCH TD SCH (13:11)
[2017-07-18] MEDS: HEPARIN NA (PORCINE) 5,000 UNITS/ML 1ML VIAL SQ SCH ×2 (13:11→21:47)
[2017-07-18] MEDS: SODIUM CHLORIDE 0.45% 1,000 ML IV SCH (13:11)
[2017-07-18] MEDS: METOPROLOL TARTRATE 25 MG TABLET (FP) PO SCH (13:13)
[2017-07-18] MEDS: METOPROLOL SUCCINATE 25 MG TAB.SR.24H (FP) PO SCH (13:13)
--- NOTE | 2017-07-18 13:50 | PN ---
Progress Note, Physician Chief Complaint: Pt examined Feels well Does c/o left wrist pain No body aches or pain no SOB or cough - Current Medication List Current Medications: Active Medications Acetaminophen (Tylenol -) 650 mg PO Q6H PRN PRN Reason: FEVER Albuterol/Ipratropium (Duoneb -) 1 amp NEB Q6H PRN PRN Reason: Dyspnea Aspirin (Asa -) 81 mg PO DAILY [facility] Last Admin: 07/18/17 13:10 Dose: 81 mg Atorvastatin Calcium (Lipitor -) 40 mg PO HS [facility] Last Admin: 07/17/17 22:04 Dose: 40 mg Heparin Sodium (Porcine) (Heparin -) 5,000 unit SQ BID [facility] Last Admin: 07/18/17 13:11 Dose: 5,000 unit Azithromycin (Zithromax 500mg Ivpb (Pre-Docked)) 250 mls @ 250 mls/hr IVPB DAILY [facility] Last Admin: 07/18/17 13:09 Dose: 250 mls/hr Ceftriaxone Sodium (Rocephin 1gm Ivpb (Pre-Docked)) 50 mls @ 100 mls/hr IVPB DAILY [facility] Last Admin: 07/18/17 13:10 Dose: 100 mls/hr Sodium Chloride (1/2 Normal Saline) 1,000 mls @ 83 mls/hr IV ASDIR [facility] Last Admin: 07/18/17 13:11 Dose: 83 mls/hr Metoprolol Succinate (Toprol Xl -) 25 mg PO DAILY [facility] Last Admin: 07/18/17 13:13 Dose: 25 mg Nicotine (Nicoderm Patch -) 14 mg TD DAILY [facility] Last Admin: 07/18/17 13:11 Dose: 14 mg - Objective Vital Signs: Vital Signs Temperature 98.2 F 07/18/17 06:00 Pulse Rate 75 07/18/17 06:00 Respiratory Rate 18 07/18/17 06:00 Blood Pressure 144/78 07/18/17 06:00 O2 Sat by Pulse Oximetry (%) 96 07/17/17 21:00 Constitutional: Yes: No Distress Cardiovascular: Yes: Regular Rate and Rhythm Respiratory: Yes: Rales (right lung base) Gastrointestinal: Yes: Normal Bowel Sounds, Soft. No: Tenderness Edema: No Labs: CBC, BMP 07/18/17 05:35 07/18/17 05:35 INR, PTT INR 1.17 (0.82-1.09) H 07/16/17 17:38 Problem List - Problems (1) Pneumonia Code(s): J18.9 - PNEUMONIA, UNSPECIFIED ORGANISM Qualifiers: Pneumonia type: due to unspecified organism Laterality: right Lung location: lower lobe of lung Qualified Code(s): J18.1 - Lobar pneumonia, unspecified organism (2) Rhabdomyolysis Code(s): M62.82 - RHABDOMYOLYSIS Qualifiers: Rhabdomyolysis type: traumatic (3) Syncope Code(s): R55 - SYNCOPE AND COLLAPSE Qualifiers: Syncope type: unspecified Qualified Code(s): R55 - Syncope and collapse (4) Troponin I above reference range Code(s): R74.8 - ABNORMAL LEVELS OF OTHER SERUM ENZYMES (5) Abnormal LFTs Code(s): R79.89 - OTHER SPECIFIED ABNORMAL FINDINGS OF BLOOD CHEMISTRY (6) Wrist pain, left Code(s): M25.532 - PAIN IN LEFT WRIST Assessment/Plan PLAN Pneumonia-- Urine antigens negative Throat culture negative IV antibiotics-- Zithromax and Ceftriaxone Nebs as needed Syncope- Cardiology eval normal stress test normal Echo - normal LV function IV fluids trend CPK Carotid doppler-- no stenosis may need to repeat CT chest in a few days CT chest -- Negative for PE, right lung infiltrate CT facial bones-- nasal fracture CT head- negative Rinse mouth with warm saline water Elevated LFT-- Hep C, A and B pending Sono liver-- fatty liver ?antibiotics h/o alcohol use - occasional Wrist pain Xray unremarkable likely contusion due to impact of fall check uric acid and ESR to R/O gout-- possibly not gout related DVT prophylaxis-- Heparin sc
--- NOTE | 2017-07-18 17:14 | PN ---
Teaching Attending Note Name of Resident: Javier Brar ATTENDING PHYSICIAN STATEMENT I saw and evaluated the patient. I reviewed the resident's note and discussed the case with the resident. I agree with the resident's findings and plan as documented. SUBJECTIVE: c/o difficulty eating due to laceration in his mouth due to fall OBJECTIVE: Vital Signs Period Temp Pulse Resp BP Sys/Elias Pulse Ox Last 24 Hr 98.2 F-99.2 F 75-77 18-20 130-149/61-82 96-96 cor-rrr lungs decreased bs at bases abd soft,nt ext no edema CBC, BMP 07/18/17 05:35 07/18/17 05:35 hiv negative Microbiology 07/16/17 20:43 Urine - Urine Clean Catch Urine Culture - Final Diphtheroid/Corynebacterium 07/16/17 17:38 Throat Throat Culture - Final NO BETA HEMOLYTIC STREPTOCOCCI ISOLATED 07/16/17 17:38 Throat Group A Strep Rapid Antigen - Preliminary 07/16/17 17:38 Blood - Peripheral Venous Blood Culture - Preliminary NO GROWTH OBTAINED AFTER 24 HOURS, INCUBATION TO CONTINUE FOR 4 DAYS. 07/16/17 17:38 Blood - Peripheral Venous Blood Culture - Preliminary NO GROWTH OBTAINED AFTER 24 HOURS, INCUBATION TO CONTINUE FOR 4 DAYS. ASSESSMENT AND PLAN: syncope possible pneumonia continue rocephin/zithromax f/u cultures Problem List - Problems (1) Syncope Code(s): R55 - SYNCOPE AND COLLAPSE Qualifiers: Syncope type: unspecified Qualified Code(s): R55 - Syncope and collapse (2) Pneumonia Code(s): J18.9 - PNEUMONIA, UNSPECIFIED ORGANISM Qualifiers: Pneumonia type: due to unspecified organism Laterality: right Lung location: lower lobe of lung Qualified Code(s): J18.1 - Lobar pneumonia, unspecified organism (3) Rhabdomyolysis Code(s): M62.82 - RHABDOMYOLYSIS Qualifiers: Rhabdomyolysis type: traumatic (4) Abnormal LFTs Code(s): R79.89 - OTHER SPECIFIED ABNORMAL FINDINGS OF BLOOD CHEMISTRY (5) Troponin I above reference range Code(s): R74.8 - ABNORMAL LEVELS OF OTHER SERUM ENZYMES
[2017-07-18] MEDS: ATORVASTATIN CA 40 MG TABLET (FP) PO SCH (21:47)
[2017-07-19 08:06] LABS: BASOPHIL 0.8 % (0-2.0); EOSINOPHIL 1.8 % (0-4.5); MCH 31.9 pg (25.7-33.7); MCHC 33.9 g/dl (32.0-35.9); MEAN CELL VOLUME 94.1 fl (80-96); MEAN PLT VOLUME 8.2 fl (7.5-11.1); NEUTROPHILS 65.4 % (42.8-82.8); PLATELET COUNT 244 K/MM3 (134-434); RDW 13.4 % (11.9-15.9); WHITE BLOOD COUNT 10.7 K/mm3 (4.0-10.0)
--- NOTE | 2017-07-19 08:45 | PN ---
Progress Note, Physician Chief Complaint: TELE: NSR, no further PSVT Stress: negative - Current Medication List Current Medications: Active Medications Acetaminophen (Tylenol -) 650 mg PO Q6H PRN PRN Reason: FEVER Albuterol/Ipratropium (Duoneb -) 1 amp NEB Q6H PRN PRN Reason: Dyspnea Aspirin (Asa -) 81 mg PO DAILY [facility] Last Admin: 07/18/17 13:10 Dose: 81 mg Atorvastatin Calcium (Lipitor -) 40 mg PO HS [facility] Last Admin: 07/18/17 21:47 Dose: 40 mg Heparin Sodium (Porcine) (Heparin -) 5,000 unit SQ BID [facility] Last Admin: 07/18/17 21:47 Dose: 5,000 unit Azithromycin (Zithromax 500mg Ivpb (Pre-Docked)) 250 mls @ 250 mls/hr IVPB DAILY [facility] Last Admin: 07/18/17 13:09 Dose: 250 mls/hr Ceftriaxone Sodium (Rocephin 1gm Ivpb (Pre-Docked)) 50 mls @ 100 mls/hr IVPB DAILY [facility] Last Admin: 07/18/17 13:10 Dose: 100 mls/hr Sodium Chloride (1/2 Normal Saline) 1,000 mls @ 83 mls/hr IV ASDIR [facility] Last Admin: 07/18/17 13:11 Dose: 83 mls/hr Metoprolol Succinate (Toprol Xl -) 25 mg PO DAILY [facility] Last Admin: 07/18/17 13:13 Dose: 25 mg Nicotine (Nicoderm Patch -) 14 mg TD DAILY [facility] Last Admin: 07/18/17 13:11 Dose: 14 mg - Objective Vital Signs: Vital Signs Temperature 98.7 F 07/19/17 06:00 Pulse Rate 70 07/19/17 06:00 Respiratory Rate 18 07/19/17 06:00 Blood Pressure 135/68 07/19/17 06:00 O2 Sat by Pulse Oximetry (%) 97 07/18/17 21:00 Constitutional: Yes: No Distress Eyes: Yes: Conjunctiva Clear Cardiovascular: Yes: Regular Rate and Rhythm Respiratory: Yes: CTA Bilaterally Gastrointestinal: Yes: Soft Edema: No Neurological: Yes: Alert, Oriented ...Motor Strength: WNL Labs: CBC, BMP 07/19/17 05:35 INR, PTT INR 1.17 (0.82-1.09) H 07/16/17 17:38 Assessment/Plan Assessment/Plan 72 year old man with no prior known pmh admitted with syncope, dizziness, abdominal discomfort, PNA, elevated ck and troponin. Syncope-uncertain etiology-likely related to PNA -brief episodes of NSVT vs PSVT with aberrancy on telemetry with frequent PVCs -no further sig ectopy or PSVT, can d/c tele -carotid doppler showed no stenosis -CT head showed no acute event -echo showed normal LV/RV function, mod MR/TR/NE, no pericardial effusion. Elevated cardiac enzymes -troponin slightly above upper limit of normal but did not trend significantly up and is associated with an elevated CK level out of proportion to troponin thus unlikely at type I MA, trop trended back down to 0.13 on last check; CTA neg for PE -cont ASA 81mg daily -cont metoprolol will change to toprol xl 50mg daily -Nuclear stress no ischemia Arrhythmia-frequent PVCs, 5 beats NSVT vs PSVT with aberrancy -echo normal EF -cont metoprolol, adjust to daily dosing as above -Normal EF -D/C tele
[2017-07-19 09:15] LABS: ALBUMIN 2.8 g/dl (3.4-5.0); ALK PHOS 64 U/L (45-117); ANION GAP 8 (8-16); BILIRUBIN,TOTAL 0.5 mg/dL (0.2-1.0); CALCIUM 8.5 mg/dL (8.5-10.1); CO2 26 mmol/L (21-32); CREATININE 0.7 mg/dL (0.7-1.3); GLUCOSE,RANDOM 78 mg/dL (74-106); SGOT/AST 206 U/L (15-37); SGPT/ALT 90 U/L (12-78); TOT PROT 5.8 g/dl (6.4-8.2); URIC ACID 4.5 mg/dL (2.6-7.2)
[2017-07-19 09:17] LABS: CPK 9989 IU/L (39-308)
[2017-07-19] MEDS: METOPROLOL SUCCINATE 25 MG TAB.SR.24H (FP) PO SCH (10:31)
[2017-07-19] MEDS: HEPARIN NA (PORCINE) 5,000 UNITS/ML 1ML VIAL SQ SCH ×2 (10:31→22:28)
[2017-07-19] MEDS: ASPIRIN 81 MG CHEWABLE TABLETS PO SCH (10:31)
[2017-07-19] MEDS: NICOTINE 14 MG/24 HOURS TOPICAL PATCH TD SCH (10:32)
[2017-07-19] MEDS: SODIUM CHLORIDE 0.45% 1,000 ML IV SCH ×3 (10:33→22:32)
[2017-07-19] MEDS: CEFTRIAXONE 50 ML IVPB SCH (10:33)
[2017-07-19] MEDS: AZITHROMYCIN IVPB 250 ML IVPB SCH (10:33)
--- NOTE | 2017-07-19 10:34 | PN ---
Teaching Attending Note Name of Resident: Javier Brar ATTENDING PHYSICIAN STATEMENT I saw and evaluated the patient. I reviewed the resident's note and discussed the case with the resident. I agree with the resident's findings and plan as documented. SUBJECTIVE: feels much improved OBJECTIVE: Vital Signs Period Temp Pulse Resp BP Sys/Elias Pulse Ox Last 24 Hr 97.8 F-98.9 F 66-84 18-20 135-160/60-90 97 cor-rrr lungs clear abd- soft,nt ext no edema CBC, BMP 07/19/17 05:35 07/19/17 05:35 Microbiology 07/16/17 17:38 Blood - Peripheral Venous Blood Culture - Preliminary NO GROWTH OBTAINED AFTER 48 HOURS, INCUBATION TO CONTINUE FOR 3 DAYS. 07/16/17 17:38 Blood - Peripheral Venous Blood Culture - Preliminary NO GROWTH OBTAINED AFTER 48 HOURS, INCUBATION TO CONTINUE FOR 3 DAYS. 07/16/17 20:43 Urine - Urine Clean Catch Urine Culture - Final Diphtheroid/Corynebacterium 07/16/17 17:38 Throat Throat Culture - Final NO BETA HEMOLYTIC STREPTOCOCCI ISOLATED 07/16/17 17:38 Throat Group A Strep Rapid Antigen - Preliminary 07/16/17 23:45 Urine For Antigen Detection Legionella Antigen - Final 07/16/17 23:45 Urine For Antigen Detection Streptococcus pneumoniae Antigen (M - Final Current Medications Acetaminophen (Tylenol -) 650 mg PO Q6H PRN PRN Reason: FEVER Albuterol/Ipratropium (Duoneb -) 1 amp NEB Q6H PRN PRN Reason: Dyspnea Aspirin (Asa -) 81 mg PO DAILY [facility] Last Admin: 07/18/17 13:10 Dose: 81 mg Atorvastatin Calcium (Lipitor -) 40 mg PO HS [facility] Last Admin: 07/18/17 21:47 Dose: 40 mg Heparin Sodium (Porcine) (Heparin -) 5,000 unit SQ BID [facility] Last Admin: 07/18/17 21:47 Dose: 5,000 unit Azithromycin (Zithromax 500mg Ivpb (Pre-Docked)) 250 mls @ 250 mls/hr IVPB DAILY [facility] Last Admin: 07/18/17 13:09 Dose: 250 mls/hr Ceftriaxone Sodium (Rocephin 1gm Ivpb (Pre-Docked)) 50 mls @ 100 mls/hr IVPB DAILY [facility] Last Admin: 07/18/17 13:10 Dose: 100 mls/hr Sodium Chloride (1/2 Normal Saline) 1,000 mls @ 120 mls/hr IV ASDIR [facility] Metoprolol Succinate (Toprol Xl -) 25 mg PO DAILY [facility] Last Admin: 07/18/17 13:13 Dose: 25 mg Nicotine (Nicoderm Patch -) 14 mg TD DAILY [facility] Last Admin: 07/18/17 13:11 Dose: 14 mg Laboratory Tests 07/19/17 05:35 Creatine Kinase 9989 H ASSESSMENT AND PLAN: syncope pneumonia rhabdomyolysis wbc improved continue antibiotics day #4-rocephin/zithromax rising cpk,, continue ivf would complete total 5 days antibiotics please call back if needed Problem List - Problems (1) Syncope Code(s): R55 - SYNCOPE AND COLLAPSE Qualifiers: Syncope type: unspecified Qualified Code(s): R55 - Syncope and collapse (2) Pneumonia Code(s): J18.9 - PNEUMONIA, UNSPECIFIED ORGANISM Qualifiers: Pneumonia type: due to unspecified organism Laterality: right Lung location: lower lobe of lung Qualified Code(s): J18.1 - Lobar pneumonia, unspecified organism (3) Rhabdomyolysis Code(s): M62.82 - RHABDOMYOLYSIS Qualifiers: Rhabdomyolysis type: traumatic (4) Abnormal LFTs Code(s): R79.89 - OTHER SPECIFIED ABNORMAL FINDINGS OF BLOOD CHEMISTRY (5) Troponin I above reference range Code(s): R74.8 - ABNORMAL LEVELS OF OTHER SERUM ENZYMES
--- NOTE | 2017-07-19 11:07 | PN ---
Physical Exam: SUBJECTIVE: Patient seen and examined. No overnight events and no new complaints. He still has pain and weakness in his left hand. Patient says cough is much better than before. He denies chest and abdominal pain, diarrhea, urinary symptoms, fever, SOB and dizziness. OBJECTIVE: Vital Signs Period Temp Pulse Resp BP Sys/Elias Pulse Ox Last 24 Hr 97.8 F-98.9 F 66-84 18-20 135-160/60-90 97 GENERAL: The patient is awake, alert, and fully oriented, in no acute distress. HEAD: Normal with no signs of trauma. EYES: PERRL, extraocular movements intact, sclera anicteric, conjunctiva clear. No ptosis. ENT: superficial abrasions to the nose and lips. Healing laceration to the mucosal surface of lower lip. NECK: supple. LUNGS: Breath sounds equal, clear to auscultation bilaterally, no wheezes, no crackles, no accessory muscle use. HEART: Regular rate and rhythm, S1, S2 without murmur, rub or gallop. ABDOMEN: Soft, nontender, distended, normoactive bowel sounds, no guarding, no rebound, no hepatosplenomegaly, no masses. EXTREMITIES: pain and tenderness on left hand and wrist PSYCH: Normal mood, normal affect. SKIN: Warm, dry, normal turgor, no rashes Laboratory Results - last 24 hr 07/18/17 07/19/17 07/19/17 09:10 05:35 05:35 WBC 10.7 H D RBC 4.56 Hgb 14.5 Hct 42.9 MCV 94.1 MCH 31.9 MCHC 33.9 RDW 13.4 Plt Count 244 MPV 8.2 Neutrophils % 65.4 Lymphocytes % 22.7 D Monocytes % 9.3 Eosinophils % 1.8 D Basophils % 0.8 Sodium 140 Potassium 3.7 Chloride 106 Carbon Dioxide 26 Anion Gap 8 BUN 7 D Creatinine 0.7 Creat Clearance w eGFR > 60 Random Glucose 78 Uric Acid 4.5 Calcium 8.5 Total Bilirubin 0.5 AST 206 H D ALT 90 H D Alkaline Phosphatase 64 Creatine Kinase 9989 H Creatine Kinase Index 0.0 CK-MB (CK-2) 4.089 H Total Protein 5.8 L Albumin 2.8 L Hepatitis C Antibody <0.1 07/19/17 05:35 WBC RBC Hgb Hct MCV MCH MCHC RDW Plt Count MPV Neutrophils % Lymphocytes % Monocytes % Eosinophils % Basophils % Sodium Potassium Chloride Carbon Dioxide Anion Gap BUN Creatinine Creat Clearance w eGFR Random Glucose Uric Acid Calcium Total Bilirubin AST ALT Alkaline Phosphatase Creatine Kinase Cancelled Creatine Kinase Index CK-MB (CK-2) Total Protein Albumin Hepatitis C Antibody Active Medications Generic Name Dose Route Start Last Admin Trade Name Freq PRN Reason Stop Dose Admin Acetaminophen 650 mg 07/16/17 22:42 Tylenol - PO Q6H PRN FEVER Albuterol/Ipratropium 1 amp 07/16/17 22:40 Duoneb - NEB Q6H PRN Dyspnea Aspirin 81 mg 07/18/17 10:00 07/19/17 10:31 Asa - PO 81 mg DAILY [facility] Administration Atorvastatin Calcium 40 mg 07/17/17 22:00 07/18/17 21:47 Lipitor - PO 40 mg HS [facility] Administration Heparin Sodium (Porcine) 5,000 unit 07/17/17 22:00 07/19/17 10:31 Heparin - SQ 5,000 unit BID [facility] Administration Azithromycin 250 mls @ 250 mls/hr 07/17/17 10:00 07/19/17 10:33 Zithromax 500mg Ivpb (Pre-Docked) IVPB 250 mls/hr DAILY [facility] Administration Ceftriaxone Sodium 50 mls @ 100 mls/hr 07/17/17 10:00 07/19/17 10:33 Rocephin 1gm Ivpb (Pre-Docked) IVPB 100 mls/hr DAILY [facility] Administration Sodium Chloride 1,000 mls @ 120 mls/hr 07/19/17 10:23 07/19/17 10:33 1/2 Normal Saline IV 120 mls/hr ASDIR [facility] Administration Metoprolol Succinate 25 mg 07/18/17 12:30 07/19/17 10:31 Toprol Xl - PO 25 mg DAILY [facility] Administration Nicotine 14 mg 07/17/17 14:15 07/19/17 10:32 Nicoderm Patch - TD 14 mg DAILY [facility] Administration ASSESSMENT/PLAN: Patient is a 72 y/o M with no significant past medical history arrived at the ED department admitted for syncope and currently being treated for pneumonia. ASSESSMENT AND PLAN: 1) RLL Pneumonia (CAP) -Wbc improved -continue antibiotics: Day 4 rocephin 1g IV qd zithromax 500mg IV qd -Complete total of 5 days Abx 2) Rhabdomyolysis -rising CPK - continue IV fluids Visit type - Emergency Visit Emergency Visit: Yes ED Registration Date: 07/16/17 Care time: The patient presented to the Emergency Department on the above date and was hospitalized for further evaluation of their emergent condition. - New Patient This patient is new to me today: No - Critical Care Critical Care patient: No
[2017-07-19] MEDS ORDERED: ALBUTEROL SO4 2.5/IPRATROPIUM 0.5 INH SOL 3 ML VIAL.NEB. NEB PRN (11:21)
[2017-07-19] MEDS ORDERED: ACETAMINOPHEN 325 MG TABLET (FP) PO PRN (11:21)
--- NOTE | 2017-07-19 14:49 | PN ---
Progress Note, Physician Chief Complaint: No complaints - Current Medication List Current Medications: Active Medications Acetaminophen (Tylenol -) 650 mg PO Q6H PRN PRN Reason: FEVER Albuterol/Ipratropium (Duoneb -) 1 amp NEB Q6H PRN PRN Reason: Dyspnea Aspirin (Asa -) 81 mg PO DAILY [facility] Atorvastatin Calcium (Lipitor -) 40 mg PO HS [facility] Heparin Sodium (Porcine) (Heparin -) 5,000 unit SQ BID [facility] Sodium Chloride (1/2 Normal Saline) 1,000 mls @ 120 mls/hr IV ASDIR [facility] Last Admin: 07/19/17 10:33 Dose: 120 mls/hr Ceftriaxone Sodium 1 gm/ (Dextrose) 50 mls @ 100 mls/hr IVPB DAILY [facility] Azithromycin (Zithromax 500mg Ivpb (Pre-Docked)) 250 mls @ 250 mls/hr IVPB DAILY [facility] Metoprolol Succinate (Toprol Xl -) 25 mg PO DAILY [facility] Nicotine (Nicoderm Patch -) 14 mg TD DAILY [facility] - Objective Vital Signs: Vital Signs Temperature 98.5 F 07/19/17 14:13 Pulse Rate 65 07/19/17 14:13 Respiratory Rate 20 07/19/17 14:13 Blood Pressure 153/77 07/19/17 14:13 O2 Sat by Pulse Oximetry (%) 98 07/19/17 11:54 Constitutional: Yes: No Distress Cardiovascular: Yes: Regular Rate and Rhythm Respiratory: Yes: Diminished (but improved right side) Gastrointestinal: Yes: Normal Bowel Sounds, Soft. No: Tenderness Edema: No Labs: CBC, BMP 07/19/17 05:35 07/19/17 05:35 INR, PTT INR 1.17 (0.82-1.09) H 07/16/17 17:38 Problem List - Problems (1) Pneumonia Code(s): J18.9 - PNEUMONIA, UNSPECIFIED ORGANISM Qualifiers: Pneumonia type: due to unspecified organism Laterality: right Lung location: lower lobe of lung Qualified Code(s): J18.1 - Lobar pneumonia, unspecified organism (2) Rhabdomyolysis Code(s): M62.82 - RHABDOMYOLYSIS Qualifiers: Rhabdomyolysis type: traumatic (3) Syncope Code(s): R55 - SYNCOPE AND COLLAPSE Qualifiers: Syncope type: unspecified Qualified Code(s): R55 - Syncope and collapse (4) Troponin I above reference range Code(s): R74.8 - ABNORMAL LEVELS OF OTHER SERUM ENZYMES (5) Abnormal LFTs Code(s): R79.89 - OTHER SPECIFIED ABNORMAL FINDINGS OF BLOOD CHEMISTRY (6) Wrist pain, left Code(s): M25.532 - PAIN IN LEFT WRIST Assessment/Plan PLAN Pneumonia-- Urine antigens negative Throat culture negative IV antibiotics-- Zithromax and Ceftriaxone - Day 4 total of 5 days antibiotics per ID Nebs as needed Syncope- Cardiology eval normal stress test normal Echo - normal LV function IV fluids trend CPK Carotid doppler-- no stenosis CT chest -- Negative for PE, right lung infiltrate CT facial bones-- nasal fracture CT head- negative Rinse mouth with warm saline water Elevated LFT-- Hep A and B pending hep C negative Sono liver-- fatty liver ?antibiotics h/o alcohol use - occasional LFT are elevated --GI eval Rhabdomyolyisis -- increase IV fluids -- pt denies any pain -- trend CPK Wrist pain Xray unremarkable likely contusion due to impact of fall uric acid -normal DVT prophylaxis-- Heparin sc
[2017-07-19] MEDS: ATORVASTATIN CA 40 MG TABLET (FP) PO SCH ×2 (22:29→22:31)
[2017-07-20 06:06] LABS: HEP B SURFACE AB Non Reactive (.)
[2017-07-20] MEDS ORDERED: DEXTROSE 5%-WATER - 50 ML IVPB ONE (09:14)
[2017-07-20] MEDS ORDERED: cefTRIAXone SODIUM 1 GM VIAL ONE (09:14)
[2017-07-20] MEDS: NICOTINE 14 MG/24 HOURS TOPICAL PATCH TD SCH (09:18)
[2017-07-20] MEDS: ASPIRIN 81 MG CHEWABLE TABLETS PO SCH (09:18)
[2017-07-20] MEDS: METOPROLOL SUCCINATE 25 MG TAB.SR.24H (FP) PO SCH (09:18)
[2017-07-20] MEDS: HEPARIN NA (PORCINE) 5,000 UNITS/ML 1ML VIAL SQ SCH ×2 (09:19→21:10)
[2017-07-20] MEDS ORDERED: AZITHROMYCIN IVPB 250 ML IVPB SCH (10:00)
[2017-07-20] MEDS ORDERED: CEFTRIAXONE 1 GM in DEXTROSE 5%-WATER - 50 ML IVPB SCH (10:00)
--- NOTE | 2017-07-20 10:42 | PN ---
Progress Note, Physician Chief Complaint: no complaints no SOB , pain No cough - Current Medication List Current Medications: Active Medications Acetaminophen (Tylenol -) 650 mg PO Q6H PRN PRN Reason: FEVER Albuterol/Ipratropium (Duoneb -) 1 amp NEB Q6H PRN PRN Reason: Dyspnea Aspirin (Asa -) 81 mg PO DAILY [facility] Last Admin: 07/20/17 09:18 Dose: 81 mg Atorvastatin Calcium (Lipitor -) 40 mg PO HS [facility] Last Admin: 07/19/17 22:31 Dose: 40 mg Heparin Sodium (Porcine) (Heparin -) 5,000 unit SQ BID [facility] Last Admin: 07/20/17 09:19 Dose: 5,000 unit Sodium Chloride (1/2 Normal Saline) 1,000 mls @ 120 mls/hr IV ASDIR [facility] Last Admin: 07/19/17 22:32 Dose: 120 mls/hr Ceftriaxone Sodium 1 gm/ (Dextrose) 50 mls @ 100 mls/hr IVPB DAILY [facility] Last Admin: 07/20/17 09:18 Dose: 100 mls/hr Azithromycin (Zithromax 500mg Ivpb (Pre-Docked)) 250 mls @ 250 mls/hr IVPB DAILY [facility] Last Admin: 07/20/17 10:12 Dose: 250 mls/hr Metoprolol Succinate (Toprol Xl -) 25 mg PO DAILY [facility] Last Admin: 07/20/17 09:18 Dose: 25 mg Nicotine (Nicoderm Patch -) 14 mg TD DAILY [facility] Last Admin: 07/20/17 09:18 Dose: 14 mg - Objective Vital Signs: Vital Signs Temperature 98.9 F 07/20/17 08:16 Pulse Rate 77 07/20/17 08:16 Respiratory Rate 20 07/20/17 08:16 Blood Pressure 148/89 07/20/17 08:16 O2 Sat by Pulse Oximetry (%) 98 07/19/17 21:00 Constitutional: Yes: No Distress Cardiovascular: Yes: Regular Rate and Rhythm Respiratory: Yes: Diminished Gastrointestinal: Yes: Normal Bowel Sounds, Soft. No: Distention, Tenderness Edema: No Labs: CBC, BMP 07/19/17 05:35 07/19/17 05:35 INR, PTT INR 1.17 (0.82-1.09) H 07/16/17 17:38 Problem List - Problems (1) Pneumonia Code(s): J18.9 - PNEUMONIA, UNSPECIFIED ORGANISM Qualifiers: Pneumonia type: due to unspecified organism Laterality: right Lung location: lower lobe of lung Qualified Code(s): J18.1 - Lobar pneumonia, unspecified organism (2) Rhabdomyolysis Code(s): M62.82 - RHABDOMYOLYSIS Qualifiers: Rhabdomyolysis type: traumatic (3) Syncope Code(s): R55 - SYNCOPE AND COLLAPSE Qualifiers: Syncope type: unspecified Qualified Code(s): R55 - Syncope and collapse (4) Troponin I above reference range Code(s): R74.8 - ABNORMAL LEVELS OF OTHER SERUM ENZYMES (5) Abnormal LFTs Code(s): R79.89 - OTHER SPECIFIED ABNORMAL FINDINGS OF BLOOD CHEMISTRY (6) Wrist pain, left Code(s): M25.532 - PAIN IN LEFT WRIST Assessment/Plan PLAN Pneumonia-- Urine antigens negative Throat culture negative IV antibiotics-- Zithromax and Ceftriaxone - Day 5-- dc after today's dose per ID total of 5 days antibiotics per ID Nebs as needed Syncope- Cardiology eval normal stress test normal Echo - normal LV function IV fluids trend CPK-- labs not done today , called lab Carotid doppler-- no stenosis CT chest -- Negative for PE, right lung infiltrate CT facial bones-- nasal fracture CT head- negative Rinse mouth with warm saline water Elevated LFT-- Hep A and B pending hep C negative Sono liver-- fatty liver ?antibiotics h/o alcohol use - occasional LFT are elevated --GI eval Rhabdomyolyisis -- increase IV fluids -- pt denies any pain -- trend CPK Wrist pain Xray unremarkable likely contusion due to impact of fall uric acid -normal DVT prophylaxis-- Heparin sc
[2017-07-20 12:02] LABS: MCH 31.7 pg (25.7-33.7); MCHC 33.8 g/dl (32.0-35.9); MEAN CELL VOLUME 93.8 fl (80-96); MEAN PLT VOLUME 8.1 fl (7.5-11.1); PLATELET COUNT 298 K/MM3 (134-434); RDW 13.7 % (11.9-15.9); WHITE BLOOD COUNT 13.5 K/mm3 (4.0-10.0)
[2017-07-20 12:22] LABS: ALBUMIN 2.9 g/dl (3.4-5.0); ANION GAP 9 (8-16); BILIRUBIN,TOTAL 0.4 mg/dL (0.2-1.0); CO2 27 mmol/L (21-32); CREATININE 0.7 mg/dL (0.7-1.3); GLUCOSE,RANDOM 140 mg/dL (74-106); SGOT/AST 191 U/L (15-37); SGPT/ALT 114 U/L (12-78); TOT PROT 6.2 g/dl (6.4-8.2)
[2017-07-20 12:45] LABS: ALK PHOS 70 U/L (45-117)
[2017-07-20 12:47] LABS: CPK 7038 IU/L (39-308)
[2017-07-20] MEDS: SODIUM CHLORIDE 0.45% 1,000 ML IV SCH (20:26)
[2017-07-20] MEDS: ATORVASTATIN CA 40 MG TABLET (FP) PO SCH (21:09)
[2017-07-21] MEDS: SODIUM CHLORIDE 0.45% 1,000 ML IV SCH (05:26)
[2017-07-21 08:14] LABS: ALBUMIN 2.9 g/dl (3.4-5.0); ANION GAP 9 (8-16); CALCIUM 8.8 mg/dL (8.5-10.1); CO2 28 mmol/L (21-32); CREATININE 0.8 mg/dL (0.7-1.3); GLUCOSE,RANDOM 90 mg/dL (74-106); SGOT/AST 148 U/L (15-37); SGPT/ALT 115 U/L (12-78)
[2017-07-21 08:32] LABS: ALK PHOS 70 U/L (45-117); BILIRUBIN,TOTAL 0.7 mg/dL (0.2-1.0); TOT PROT 6.2 g/dl (6.4-8.2)
[2017-07-21 08:34] LABS: CPK 3990 IU/L (39-308)
[2017-07-21] MEDS: HEPARIN NA (PORCINE) 5,000 UNITS/ML 1ML VIAL SQ SCH (09:05)
[2017-07-21] MEDS: METOPROLOL SUCCINATE 25 MG TAB.SR.24H (FP) PO SCH (09:05)
[2017-07-21] MEDS: ASPIRIN 81 MG CHEWABLE TABLETS PO SCH (09:05)
[2017-07-21] MEDS: NICOTINE 14 MG/24 HOURS TOPICAL PATCH TD SCH (09:05)
--- NOTE | 2017-07-21 10:00 | DS ---
Physical Examination Vital Signs: Vital Signs Temperature 98 F 07/21/17 06:52 Pulse Rate 78 07/21/17 06:52 Respiratory Rate 16 07/21/17 06:52 Blood Pressure 149/82 07/21/17 06:52 O2 Sat by Pulse Oximetry (%) 99 07/20/17 21:00 Constitutional: Yes: No Distress, Calm Cardiovascular: Yes: Regular Rate and Rhythm Respiratory: Yes: Diminished Gastrointestinal: Yes: Normal Bowel Sounds, Soft. No: Tenderness Edema: No Labs: CBC, BMP 07/20/17 11:16 07/21/17 06:20 Discharge Summary Reason For Visit: PNEUMONIA Current Active Problems Abnormal LFTs (Acute) Conjunctivitis (Acute) Myocardial infarction (Acute) Pneumonia (Acute) Rhabdomyolysis (Acute) Syncope (Acute) Troponin I above reference range (Acute) Wrist pain, left (Acute) Hospital Course: Admitted for syncope Found to have Right Lower lobe pneumonia, sepsis Had elevated troponins-- secondary to sepsis Admitted to telemetry Seen by Cardiology , ID ON IV antibiotics stress done- no ischemia pt completed 5 days antibiotics clinically stable course complicated by elevated LFT-- sono liver-- fatty liver Hepatitis profile negative atorvastatin discontinued pt advised to follow up with Dr Conroy in a week to repeat labs, he needs repeat CT chest in 3 weeks for complete resolution of pneumonia Condition: Fair - Instructions Diet, Activity, Other Instructions: Pt may return to work after being seen by Dr Conroy in the office within a week. Till then, he is advised to stay home from work. Pt needs CT chest repeated in 3 weeks and check CMP, CPK Referrals: Sedrick Conroy MD [Primary Care Provider] - 1 Week Disposition: HOME - Home Medications Comprehensive Discharge Medication List: Ambulatory Orders NK [No Known Home Medication] 07/16/17
[2017-07-21 10:50] VITALS: BP 163/85; PULSE 76; TEMP 99.4
== END 2017-07-21 11:44 | disposition home or self-care (01) | DRG 871 ==
LOC: JER 16:10 → JERBED 23:20 → J4W 07-17 00:53 → J8W 07-19 11:15
PROVIDERS: ADMIT Internal Medicine; ATTEND Internal Medicine
DX: A41.9 Sepsis, unspecified organism (principal); J18.1 Lobar pneumonia, unspecified organism; I47.2 Ventricular tachycardia; M62.82 Rhabdomyolysis; I47.1 Supraventricular tachycardia; R55 Syncope and collapse; H10.33 Unspecified acute conjunctivitis, bilateral; R74.0 Nonspecific elevation of levels of transaminase and lactic acid dehydrogenase [LDH]; F17.210 Nicotine dependence, cigarettes, uncomplicated; D72.828 Other elevated white blood cell count; R06.6 Hiccough; R79.89 Other specified abnormal findings of blood chemistry; K70.0 Alcoholic fatty liver; R74.8 Abnormal levels of other serum enzymes; F10.10 Alcohol abuse, uncomplicated; J44.9 Chronic obstructive pulmonary disease, unspecified; I08.1 Rheumatic disorders of both mitral and tricuspid valves; M25.532 Pain in left wrist; R58 Hemorrhage, not elsewhere classified; S02.2XXA Fracture of nasal bones, initial encounter for closed fracture; S01.511A Laceration without foreign body of lip, initial encounter; W18.39XA Other fall on same level, initial encounter; Y93.89 Activity, other specified; Y92.830 Public park as the place of occurrence of the external cause
CPT/HCPCS: 36415; 70450-TC; 70486-TC; 71010-TC; 71275-TC; 73110-TC-LT; 73130-TC-LT; 76705-TC; 78452-TC; 80053; 81003; 81015; 82553; 82803; 83605; 84484; 84550; 85025; 85027; 85610; 85730; 86704; 86706; 86708; 86803; 86850; 86900; 86901; 87040; 87070; 87077; 87086; 87340; 87389; 87430; 87899; 90715; 93005; 93010; 93017; 93306-TC; 93880-TC; 99283-25; A9502; J1644